=== PATIENT | male | born 1990 | race Hispanic/Latino ===

== ENCOUNTER 2016-08-11 09:05 | Inpatient (IN) | payer OTHER ==
--- NOTE | 2016-08-11 10:07 | Emergency Department Report ---
Chief Complaint: Altered Mental Status Stated Complaint: SOB/CAN'T TALK - HPI History of Present Illness: 26-year-old -[place] male with a past medical history of HIV and drug abuse comes in today for being nonverbal. Mother reports the patient has been on a binge and he comes back home. To her to be dehydrated and is non-verbal. Patient denies any pain. - Exam Vital Signs: Vital Signs 08/11/16 09:47 Temperature 98.4 F Pulse Rate 94 H Respiratory 18 Rate Blood Pressure 132/95 O2 Sat by Pulse 100 Oximetry Physical Exam: GENERAL: Alert and oriented x3, no apparent distress, Normal Gait, atraumatic. HEAD: Head is normocephalic and a-traumatic. EYES: Extra ocular muscles are intact. Pupils are equal, round, and reactive to light and accommodation. MOUTH:Mouth is not well hydrated and with white thick exudate on tongue. Tonsils nonerythematous or swollen, Uvula midline, Tongue not elevated.. Posterior pharynx clear, no exudate or lesions. Patent airways. NECK: Supple. Non edematous, No lymphadenopathy or thyromegaly. LUNGS: Symetrical with respiration, No wheezing, no rales or crackles, CTAB. HEART: S1, S2 present, regular rate and rhythm without murmur, no rubs, no gallops. ABDOMEN: No organomegaly was noted,Positive bowel sounds, soft, and non- distended. . Nontender to palpation on all Quadrants, NO CVA tenderness. NEUROLOGIC: No focal Deficit, Cranial nerves II through XII are grossly intact. No loss of sensation, No facial droop, non verbal PSYCHIATRIC: Mood is congruent with affect, SKIN: Warm and dry, No lesions, No ulceration or induration present MSE screening note: Focused history and physical exam performed. Due to findings the following was ordered: Patient's been notified weighted by this provider and MSE. Patient will be evaluated at Main ER. Altered mental status protocol ordered. ED Disposition for MSE Condition: Stable
[2016-08-11 10:57] LABS: Hematocrit 46.8 % (35.5-45.6); Hemoglobin 16.2 gm/dl (11.8-15.2); Mean Corpuscular HGB Conc 35 % (32-34); Mean Corpuscular Hemoglobin 33 pg (28-32); Mean Corpuscular Volume 94 fl (84-94); Platelet Count 180 K/mm3 (140-440); Red Blood Count 4.97 M/mm3 (3.65-5.03); Red Cell Distribution Width 12.3 % (13.2-15.2); White Blood Count 8.9 K/mm3 (4.5-11.0)
[2016-08-11 11:11] LABS: INR 0.92 (0.87-1.13)
[2016-08-11 11:12] LABS: Partial Thromboplastin Time 26.8 Sec. (24.2-36.6)
[2016-08-11 11:35] LABS: Albumin 3.5 g/dL (3.9-5); Albumin/Globulin Ratio 0.6 %; BUN/Creatinine Ratio 26.66; Bilirubin,Total 0.8 mg/dL (0.1-1.2); Calcium 9.3 mg/dL (8.4-10.2); Total Protein 9.4 g/dL (6.3-8.2)
[2016-08-11 11:36] LABS: Chloride 82.4 mmol/L (98-107); Potassium 3.5 mmol/L (3.6-5.0)
[2016-08-11 12:19] LABS: Blastocytes % (Manual) 0 %
[2016-08-11 12:20] LABS: Anisocytosis 1+; Basophils % (Manual) 0 % (0.0-1.8)
[2016-08-11 12:22] LABS: Diff Status Complete; Platelet Estimate Consistent w Auto
[2016-08-11] MEDS ORDERED: NACL 0.9% 1000 ML IV ONE (13:26)
--- NOTE | 2016-08-11 14:40 | Cat Scan Report ---
FINAL REPORT PROCEDURE: CT HEAD/BRAIN WO CON TECHNIQUE: Computerized tomography of the head was performed without contrast material. HISTORY: ams elevated ck and REGINA COMPARISON: No prior studies are available for comparison. FINDINGS: Skull and scalp: Normal. Paranasal sinuses: Trace fluid right mastoid. Mucosal thickening left posterior maxillary sinus. Ventricles and subarachnoid spaces: Normal. Cerebrum: No evidence of hemorrhage, acute infarction or mass . Cerebellum and brainstem: No evidence of hemorrhage, acute infarction or mass. Vasculature: Mildly dense intracranial arteries. Comments: Cavum septum pellucidum. IMPRESSION: No definite evidence of acute intracranial pathology. If symptoms and or concern persists recommend MRI.
--- NOTE | 2016-08-11 14:44 | Emergency Department Report ---
HPI - General Chief Complaint: Altered Mental Status Time Seen by Provider: 08/11/16 14:11 - HPI HPI: Chief complaint: Altered mental status after a methamphetamine binge HPI: Patient was brought in by his mother for not acting well after methamphetamine binge. Last Friday patient disappeared until Friday. During that time he was binging on amphetamines. After returning home patient seemed to be normal on Friday but on became confused and then had nausea and vomiting. On Friday patient is not feeling well and was not eating or drinking. Patient seems confused initially but is gradually becoming more himself. Patient is currently alert and oriented 3 and feels fatigued but is no longer having nausea vomiting. Patient is not having any fever or diarrhea or cough or cold. Mode of arrival: private car Source: Patient Began: Approximately one week Duration: See above Context: See above. Patient was admitted here in May and had a low CD4 count and was treated for cryptosporidium which he has been treated for and he is no longer having diarrhea. Patient states he has been taking his medications since May and has been gaining some weight. Patient was being followed by Dr. Valenzuela who left the local practice and is now being followed by Dr. hilliard. Quality: Pain-free Severity: 0 out of 10 Improved with: Nothing Worsened with: Nothing Associated signs and symptoms: See above ED Past Medical Hx - Past Medical History Additional medical history: AIDS - Social History Smoking Status: Unknown if ever smoked Substance Use Type: Methamphetamines - Medications Home Medications: Home Medications Medication Instructions Recorded Confirmed Last Taken Type Elvitegr/Cobicist/Emtric/Tenof 1 each PO DAILY 05/05/16 05/05/16 Unknown History [Stribild Tablet] Nitazoxanide [Alinia] 500 mg PO Q12H 05/05/16 05/05/16 Unknown History Azithromycin [Zithromax TAB] 600 mg PO QDAY #4 tablet 05/10/16 Unknown Rx Fluconazole [Diflucan TAB] 100 mg PO QDAY #7 tablet 05/10/16 Unknown Rx Potassium Chloride 20 meq PO DAILY #7 tablet.er 05/10/16 Unknown Rx Sulfamethoxazole/Trimethoprim 1 each PO DAILY #30 tablet 05/10/16 Unknown Rx [Bactrim DS TAB] ED Review of Systems ROS: Stated complaint: SOB/CAN'T TALK Other details as noted in HPI ROS Constitutional: No fever ENT: No uri symptoms Cardiovascular: No chest pain Respiratory: No sob or cough GI: No nausea vomiting or diarrhea : No dysuria frequency or urgency, Skin: No rash Neuro: No focal weakness or numbness Psych: No depression Dequan/lymph: No edema Physical Exam - Physical Exam Vital Signs: Vital Signs 08/11/16 09:47 Temperature 98.4 F Pulse Rate 94 H Respiratory 18 Rate Blood Pressure 132/95 O2 Sat by Pulse 100 Oximetry Physical Exam: GENERAL: The patient is thin -Citizen Of [place] male in no acute distress. HEENT: Normocephalic. Atraumatic. Extraocular motions are intact. Patient has moist mucous membranes. NECK: Supple. No meningitic signs are noted. There is no adenopathy noted. CHEST/LUNGS: Clear to auscultation. There is no respiratory distress noted. HEART/CARDIOVASCULAR: Regular. There is no tachycardia. There is no gallop rub or murmur. ABDOMEN: Abdomen is soft, nontender. Patient has normal bowel sounds. There is no abdominal distention. SKIN: There is no rash. There is no edema. There is no diaphoresis. NEURO: The patient is awake, alert, and oriented 3. The patient is cooperative. The patient has no focal neurologic deficits. The patient has normal speech. MUSCULOSKELETAL: There is no tenderness or deformity. There is no limitation range of motion. There is no evidence of acute injury. ED Course Vital Signs 08/11/16 09:47 Temperature 98.4 F Pulse Rate 94 H Respiratory 18 Rate Blood Pressure 132/95 O2 Sat by Pulse 100 Oximetry - Reevaluation(s) Reevaluation #1: 08/11/16 14:50 Patient started on 2 L of normal saline for his acute renal failure and will be admitted to the hospitalist. ED Medical Decision Making - Lab Data Result diagrams: 08/11/16 10:37 08/11/16 10:37 Laboratory Tests 08/11/16 08/11/16 08/11/16 10:37 10:37 10:37 PT 12.3 INR 0.92 APTT 26.8 AST 92 H Total Creatine Kinase 7771 H Total Protein 9.4 H Albumin 3.5 L TSH 4.520 H Salicylates Acetaminophen Plasma/Serum Alcohol 08/11/16 08/11/16 08/11/16 10:37 10:37 10:37 PT INR APTT AST Total Creatine Kinase Total Protein Albumin TSH Salicylates < 0.3 L Acetaminophen < 15.0 Plasma/Serum Alcohol < 0.01 - Radiology Data Radiology results: report reviewed (CT head shows no acute process.) Critical care attestation.: If time is entered above; I have spent that time in minutes in the direct care of this critically ill patient, excluding procedure time. ED Disposition Clinical Impression: Acute renal failure, Rhabdomyolysis Disposition: OP ADMITTED IP TO THIS HOSP Is pt being admited?: Yes Does the pt Need Aspirin: No Condition: Fair Referrals: PRIMARY CARE, [Primary Care Provider] - 3-5 Days Time of Disposition: 14:50 (admit to the hospitalist)
--- NOTE | 2016-08-11 15:46 | Admit Criteria Form ---
Admission Criteria Documentation: MUSCULOSKELETAL DISEASE GRG Clinical Indications for Admission to Inpatient Care (Place 'X' for any and all applicable criteria): Hospital admission is needed for appropriate care of the patient because of ANY ONE of the following: [ ]I. Fracture, dislocation, or other musculoskeletal injury requiring inpatient care(medical) as indicated by ANY ONE of the following(4)(5)(6)(7) [ ]a) Vertebral fracture requiring observation for instability or neurologic compromise (8) [ ]b) Compartment syndrome (proven or cannot be ruled out during observation level of care) (9) [ ]c) Limb-threatening injury [ ]d) Major injury requiring inpatient stabilization such as traction initiation or external fixation before internal fixation or closure of complex or open fracture [ ]e) Major injury requiring inpatient treatment after emergency or observation level care (as appropriate) [ ]f) Severe pain requiring acute inpatient management [ ]II. Newly diagnosed or suspected bone, joint, or orthopedic device infection (e.g., osteomyelitis, septic arthritis) needing ANY ONE of the following(1)(2)(3) [ ]a) IV antibiotics that cannot be initiated in other than inpatient setting (e.g., patient too unstable or home infusion not available) [ ]b) Device removal or replacement [ ]c) Bone or soft tissue debridement [ ]d) Joint drainage (drain placement or repetitive aspirations) [ ]III. Severe rheumatologic disease (e.g., systemic lupus erythematosus, rheumatoid arthritis) with complications or comorbidities (Also use Optimal Recovery Care Criteria or General Recovery Criteria as appropriate on the basis of predominant condition), including ANY ONE of the following(10 )(11)(12)(13) [ ]a) Severe infection (e.g., JIGMAN infection, sepsis) (14) [ ]b) Respiratory complications, including ANY ONE of the following: [ ]i) Pleural effusion with respiratory compromise [ ]ii) Pulmonary hypertension with congestive failure [ ]iii) Respiratory failure [ ]iv) Pulmonary hemorrhage (15) [ ]c) Hematologic disease, including ANY ONE of the following: [ ]i) Coagulopathy with bleeding [ ]ii) Thrombosis with hypercoagulable state [ ]iii) Thrombotic thrombocytopenic purpura [ ]d) Cerebritis with seizures, psychosis, or other severe abnormalities [ ]e) Vertebral destruction with monitoring needed for cervical myelopathy& possible respiratory compromise [ ]f) Exacerbation that requires inpatient treatment (e.g., intravenous immunosuppression) (16) [ ]g) Acute renal failure [ ]IV. Severe vasculitis with complications or comorbidities (Also use Optimal Recovery Care Criteria or General Recovery Criteria as appropriate on the basis of predominant condition), including ANY ONE of the following(11)(12)(17)(18)(19)(20) [ ]a) JIGMAN vasculitis with seizures, psychosis, or other severe abnormalities (22) [ ]b) Renal failure (16) [ ]c) Pulmonary hemorrhage (15) [ ]d) Cerebral infarction [ ]e) Gastrointestinal ischemia [ ]f) Gangrene or threatened amputation [ ]g) Exacerbation that requires inpatient treatment (e.g., intravenous immunosuppression) (19)(21) [ ]V. Severe myopathy as indicated by ANY ONE of the following (28)(29) [ ]a) New onset of airway compromise or inability to swallow [ ]b) Respiratory deterioration with observation needed for impending respiratory failure [ ]c) Exacerbation that requires inpatient treatment (e.g., intravenous immunosuppression) [ ]. Severe gout (crystal arthropathy) as indicated by ANY ONE of the following (23)(24) [ ]a) Severe pain requiring acute inpatient management [ ]b) Exacerbation that requires inpatient treatment (e.g., intravenous treatment) [X ]VII.Rhabdomyolysis and ANY ONE of the following (25)(26)(27) [ X]a) Acute renal failure [ ]b) Need for intravenous hydration after emergency or observation level care (as appropriate) [ ]c) Inability to maintain oral hydration [ ]d) Change in mental status [ ]e) Electrolyte abnormality that remains after emergency or observation level care (as appropriate) [ ]VIII Post amputation complication, as indicated by ANY ONE of the following [ ]a) Infection [ ]b) Dehiscence [ ]c) Myodesis failure [ ]IX. Severe pain requiring acute inpatient management as indicated by ALL of the following (30)(31)(32) [ ]a) Continuous or frequent (e.g., every 2 to 4 hrs) parenteral analgesics required [A] [ ]b) Rapid improvement expected from treatment or acute intervention ( e.g., surgery, anesthesia procedure[B] [ ]X. Musculoskeletal Disease and ALL of the following: [ ]a) Symptom or finding for which emergency and observation care have failed or are not considered appropriate (Use General Criteria: Observation Care as appropriate) [ ]b) Presence of ANY ONE of the following [ ]i) A General Admission Criteria [ ]ii) A Pediatric General Admission Criteria The original [facility] content created by [facility] has been revised. The portions of the content which have been revised are identified through the use of italic text or in bold, and [facility] has neither reviewed nor approved the modified material. All other unmodified content is copyright [facility]. Please see references footnoted in the original [facility] edition 2016 Admission Criteria Met: Yes
--- NOTE | 2016-08-11 23:57 | Event Note ---
Date: 08/11/16 See H/p in reports AMS-improving Methamphetamine binge Rhabdomyolysis Acute Renal failure Hyponatremia Hypokalemia Hiv/AIDS
[2016-08-12] MEDS ORDERED: HALDOL IM PRN (01:11)
[2016-08-12] MEDS ORDERED: ATIVAN IV PRN ×2 (01:11)
[2016-08-12] MEDS ORDERED: K-DUR PO ONE ×3 (01:40→08:21)
[2016-08-12] MEDS ORDERED: D5NS 1,000 ML IV SCH (02:00)
--- NOTE | 2016-08-12 02:29 | History and Physical Report ---
CHIEF COMPLAINT: 1. Methamphetamine binge. 2. Altered mental status. HISTORY OF PRESENT ILLNESS: A 26-year-old -[place] male with history of HIV and AIDS, brought in by mother for altered mental status. The patient was on methamphetamine binge 1 week ago last Friday, this appeared until Friday. During that time, the patient was apparently binging on methamphetamines. The patient was apparently normal on Friday, which is 08/07/2016, by around 08/08/2016, the patient became confused, and also had nausea and vomiting. On 08/09/2016, the patient was not feeling well and was not eating or drinking. The patient seems confused initially, but has been gradually becoming more himself. The patient is currently better now compared to 3 days ago, but feels fatigued and no longer having nausea and vomiting, and not having any fever or chills. The patient was admitted here in May for low CD4 count and was treated for cryptosporidium, was followed by Dr. Kincaid and Dr. Car. The patient currently under antiretrovirals. PAST MEDICAL HISTORY: Significant for AIDS and HIV. SOCIAL HISTORY: Methamphetamine use. PAST SURGICAL HISTORY: None. FAMILY HISTORY: Hypertension. CURRENT MEDICATIONS: Stribild tablets 1 tablet once a day, 500 mg p.o. q.i.d., Zithromax 600 mg q.i.d., fluconazole 100 mg p.o. daily, potassium chloride 20 mEq daily, Bactrim 1 tablet p.o. daily. REVIEW OF SYSTEMS: CONSTITUTIONAL: Altered sensorium 3 days ago, but now better, back to baseline. There was also vomiting or nausea. HEENT: No sore throat. No postnasal drip. CARDIOVASCULAR AND RESPIRATORY SYSTEM: No shortness of breath, no chest pain, no palpitations. GASTROINTESTINAL: No nausea, vomiting present until two days ago, today is feeling better. GENITOURINARY SYSTEM: No dysuria, no flank pain. MUSCULOSKELETAL SYSTEM: No joint pains. No muscle pains. CENTRAL NERVOUS SYSTEM: No syncope, no seizures. Altered sensorium until two days ago. SKIN: Normal. A 14-point review of systems done and are negative. PHYSICAL EXAMINATION: GENERAL: Young male, cooperative during examination. VITAL SIGNS: Temperature 98.4, pulse is 94, respiratory rate is 18, blood pressure is 132/95, sats are 100%. HEENT: Unremarkable. Tongue dry. NECK: Supple, no lymphadenopathy, no thyromegaly. LUNGS: Clear to auscultation and percussion. Good air entry. CARDIOVASCULAR: S1, S2 heard. No gallop, no murmur, no rub. Apical impulse in left fifth intercostal space and midclavicular line. ABDOMEN: Soft and benign. No hepatosplenomegaly. No guarding and no rigidity. Hernial orifices are normal. EXTREMITIES: Good pedal pulses. No pedal edema. CENTRAL NERVOUS SYSTEM: Alert and oriented x4. NEUROLOGIC: Nonfocal exam. SKIN: Normal. LABORATORY DATA: Significant for H and H of 16.2 and 46.8 high. Platelet count is 180,000. Sodium is 130, potassium is 3.5, BUN and creatinine 64 and 2.4, creatinine kinase is 7771. TSH is 4.52, total protein is 9.4, albumin 3.5, AST is high at 92; toxicology screen is negative. Amphetamine positive. Head CT was normal. ASSESSMENT AND PLAN: 1. Acute renal failure. The patient was started on IV fluids. Follow up BUN and creatinine, Dr. Mccabe, the Nephrology on-call was consulted. 2. Rhabdomyolysis, moderate. IV fluids for the time being. Follow BUN and creatinine. 3. Methamphetamine danger. Patient is on prolonged CIWA protocol. The patient is more alert and oriented x3 days ago. 4. HIV/AIDS, continue antiretrovirals. 5. Hyponatremia, should correct with IV fluids. Her urine electrolytes ordered. 6. Hypokalemia, supplemented. 7. Malnutrition moderate. Dietary consult ordered. 8. Transaminitis, ALT is normal. AST is high. 9. Deep venous thrombosis prophylaxis, Lovenox 40 mg subcutaneous daily. JOB# [id number] VSM/NTS
[2016-08-12 04:42] LABS: Magnesium 2.8 mg/dL (1.7-2.3); Phosphorous 2.8 mg/dL (2.5-4.5)
[2016-08-12] MEDS: VIREAD PO SCH (09:33)
[2016-08-12] MEDS: NON-FORMULARY (Dolutegravir 50 MG) PO SCH (09:34)
[2016-08-12] MEDS ORDERED: PREZCOBIX 800 MG PO SCH (10:00)
[2016-08-12] MEDS: NON-FORMULARY (Darunavir/Cobicistat [Prezcobix 800 Mg-150 Mg Tablet] 1 EACH) PO SCH (10:00)
[2016-08-12] MEDS ORDERED: NON-FORMULARY (Dolutegravir Sodium [Tivicay] 50 MG) PO SCH (10:00)
[2016-08-12] MEDS ORDERED: VIREAD PO SCH (10:00)
--- NOTE | 2016-08-12 11:43 | Consultation ---
History of Present Illness - Reason for Consult Consult date: 08/12/16 acute renal failure Requesting physician: HAYDEE ESPINOSA - History of Present Illness 26-year-old male with a history of AIDS Medications and Allergies Allergies Allergy/AdvReac Type Severity Reaction Status Date / Time No Known Allergies Allergy Unverified 05/05/16 14:17 Home Medications Medication Instructions Recorded Confirmed Last Taken Type Darunavir/Cobicistat [Prezcobix 1 each PO DAILY 08/11/16 08/11/16 Unknown History 800 mg-150 mg Tablet] Dolutegravir Sodium [Tivicay] 50 mg PO DAILY 08/11/16 08/11/16 Unknown History Tenofovir [Viread] 300 mg PO QDAY 08/11/16 08/11/16 Unknown History Active Meds: Active Medications Haloperidol Lactate (Haldol) 5 mg IM Q1H PRN PRN Reason: Unrespon. to mult. doses BZD's Dextrose/Sodium Chloride (D5ns) 1,000 mls @ 125 mls/hr IV DIRECT [facility] Last Admin: 08/12/16 03:53 Dose: 125 mls/hr Lorazepam (Ativan) 2 mg IV Q1H PRN PRN Reason: CIWA-Ar 8-15 Lorazepam (Ativan) 4 mg IV Q1H PRN PRN Reason: CIWA-Ar 16-25 Miscellaneous Medication (Dolutegravir) 50 mg PO DAILY [facility] Last Admin: 08/12/16 09:34 Dose: 50 mg Miscellaneous Medication (Darunavir/Cobicistat [Prezcobix 800 Mg-150 Mg Tablet] ) 1 each PO DAILY [facility] Tenofovir Disoproxil Fumarate (Viread) 300 mg PO QDAY [facility] Last Admin: 08/12/16 09:33 Dose: 300 mg Exam - Vital Signs Vital signs: Vital Signs Temp Pulse Resp BP Pulse Ox 98.4 F 94 H 18 132/95 100 08/11/16 09:47 08/11/16 09:47 08/11/16 09:47 08/11/16 09:47 08/11/16 09:47 Results - Lab Results 08/11/16 10:37 08/12/16 04:06 Most recent lab results Calcium 9.3 mg/dL (8.4-10.2) 08/11/16 10:37 Phosphorus 2.8 mg/dL (2.5-4.5) 08/12/16 04:06 Magnesium 2.8 mg/dL (1.7-2.3) H 08/12/16 04:06 Assessment and Plan - Patient Problems (1) Hyponatremia Current Visit: Yes Status: Acute (2) Acute renal failure Current Visit: Yes Status: Acute Qualifiers: Acute renal failure type: A (3) Rhabdomyolysis Current Visit: Yes Status: Acute Qualifiers: Rhabdomyolysis type: R Encounter type: E (4) AIDS Current Visit: No Status: Acute (5) Hypokalemia Current Visit: No Status: Acute
--- NOTE | 2016-08-12 12:58 | Progress Note ---
Assessment and Plan Assessment and plan: Patient is a 26-year-old -[place] male with history of HIV/AIDS, Admitted with altered mental status after a week of methamphetamine binge and I' ll return home had multiple episodes of nausea with vomiting. History shows that he has had treatment for Cryptosporidium in May 2016 with noted low CD4 count of the time, he reports that he is on the care of and infectious diseases physician at this time.. On admission was noted to have rhabdomyolysis. * Acute none traumatic rhabdomyolysis * Hyponatremia * Hypokalemia * Substance abuse-amphetamine * Acute kidney injury-likely secondary to visible today nephropathy present on admission * AIDS Plan * Continue aggressive fluid resuscitation * Monitor creatinine kinase * Nephrology input noted and will continue to monitor renal function * Continue HAART therapy * Counselling provided to the patient on need to avoid substance abuse. Patient verbalized understanding * DVT/GI PROPHY History Interval history: Altered mental status Patient seen and examined this morning in no acute distress Denies any chest pain, nausea, vomiting, diarrhea No fever noted blood pressure controlled No adverse events reported to me by nursing staff Hospitalist Physical - Physical exam Narrative exam: VITAL SIGNS: Reviewed. GENERAL: The patient appeared well nourished and normally developed. Vital signs as documented. HEAD: No signs of head trauma. EYES: Pupils are equal. Extraocular motions intact. EARS: Hearing grossly intact. MOUTH: Oropharynx is normal. NECK: No adenopathy, no JVD. CHEST: Chest with clear breath sounds bilaterally. No wheezes, rales, or rhonchi. CARDIAC: Regular rate and rhythm. S1 and S2, without murmurs, gallops, or rubs. VASCULAR: No Edema. Peripheral pulses normal and equal in all extremities. ABDOMEN: Soft, without detectable tenderness. No sign of distention. No rebound or guarding, and no masses palpated. Bowel Sounds normal. MUSCULOSKELETAL: Good range of motion of all major joints. Extremities without clubbing, cyanosis or edema. NEUROLOGIC EXAM: Alert and oriented x 3. Still lethargic. No focal sensory or strength deficits. Speech still slow. Follows commands. PSYCHIATRIC: Mood normal. SKIN: No rash or lesions. - Constitutional Vitals: Temp Pulse Resp BP Pulse Ox 98.5 F 86 16 133/72 100 08/12/16 08:25 08/12/16 08:25 08/12/16 08:25 08/12/16 08:25 08/12/16 08:25 Results - Labs CBC & Chem 7: 08/11/16 10:37 08/12/16 04:06 Labs: Laboratory Last Values WBC 8.9 K/mm3 (4.5-11.0) 08/11/16 10:37 RBC 4.97 M/mm3 (3.65-5.03) 08/11/16 10:37 Hgb 16.2 gm/dl (11.8-15.2) H 08/11/16 10:37 Hct 46.8 % (35.5-45.6) H 08/11/16 10:37 MCV 94 fl (84-94) 08/11/16 10:37 MCH 33 pg (28-32) H 08/11/16 10:37 MCHC 35 % (32-34) H 08/11/16 10:37 RDW 12.3 % (13.2-15.2) L 08/11/16 10:37 Plt Count 180 K/mm3 (140-440) 08/11/16 10:37 Jessamine % (Auto) Transmission Operator 08/11/16 10:37 Add Manual Diff Complete 08/11/16 10:37 Total Counted 100 08/11/16 10:37 Seg Neuts % (Manual) 58.0 % (40.0-70.0) 08/11/16 10:37 Band Neutrophils % 0 % 08/11/16 10:37 Lymphocytes % (Manual) 13.0 % (13.4-35.0) L 08/11/16 10:37 Reactive Lymphs % (Man) 0 % 08/11/16 10:37 Monocytes % (Manual) 27.0 % (0.0-7.3) H 08/11/16 10:37 Eosinophils % (Manual) 2.0 % (0.0-4.3) 08/11/16 10:37 Basophils % (Manual) 0 % (0.0-1.8) 08/11/16 10:37 Metamyelocytes % 0 % 08/11/16 10:37 Myelocytes % 0 % 08/11/16 10:37 Promyelocytes % 0 % 08/11/16 10:37 Blast Cells % 0 % 08/11/16 10:37 Nucleated RBC % Not Reportable 08/11/16 10:37 Seg Neutrophils # Man 5.2 K/mm3 (1.8-7.7) 08/11/16 10:37 Band Neutrophils # 0.0 K/mm3 08/11/16 10:37 Lymphocytes # (Manual) 1.2 K/mm3 (1.2-5.4) 08/11/16 10:37 Abs React Lymphs (Man) 0.0 K/mm3 08/11/16 10:37 Monocytes # (Manual) 2.4 K/mm3 (0.0-0.8) H 08/11/16 10:37 Eosinophils # (Manual) 0.2 K/mm3 (0.0-0.4) 08/11/16 10:37 Basophils # (Manual) 0.0 K/mm3 (0.0-0.1) 08/11/16 10:37 Metamyelocytes # 0.0 K/mm3 08/11/16 10:37 Myelocytes # 0.0 K/mm3 08/11/16 10:37 Promyelocytes # 0.0 K/mm3 08/11/16 10:37 Blast Cells # 0.0 K/mm3 08/11/16 10:37 WBC Morphology Not Reportable 08/11/16 10:37 Hypersegmented Neuts Not Reportable 08/11/16 10:37 Hyposegmented Neuts Not Reportable 08/11/16 10:37 Hypogranular Neuts Not Reportable 08/11/16 10:37 Smudge Cells Not Reportable 08/11/16 10:37 Toxic Granulation Not Reportable 08/11/16 10:37 Toxic Vacuolation Not Reportable 08/11/16 10:37 Dohle Bodies Not Reportable 08/11/16 10:37 Pelger-Huet Anomaly Not Reportable 08/11/16 10:37 Supa Rods Not Reportable 08/11/16 10:37 Platelet Estimate Consistent w auto 08/11/16 10:37 Clumped Platelets Not Reportable 08/11/16 10:37 Plt Clumps, EDTA Not Reportable 08/11/16 10:37 Large Platelets Not Reportable 08/11/16 10:37 Giant Platelets Not Reportable 08/11/16 10:37 Platelet Satelliting Not Reportable 08/11/16 10:37 Plt Morphology Comment Not Reportable 08/11/16 10:37 RBC Morphology Not Reportable 08/11/16 10:37 Dimorphic RBCs Not Reportable 08/11/16 10:37 Polychromasia Not Reportable 08/11/16 10:37 Hypochromasia Not Reportable 08/11/16 10:37 Poikilocytosis Not Reportable 08/11/16 10:37 Anisocytosis 1+ 08/11/16 10:37 Microcytosis Not Reportable 08/11/16 10:37 Macrocytosis Not Reportable 08/11/16 10:37 Spherocytes Not Reportable 08/11/16 10:37 Pappenheimer Bodies Not Reportable 08/11/16 10:37 Sickle Cells Not Reportable 08/11/16 10:37 Target Cells Not Reportable 08/11/16 10:37 Tear Drop Cells Not Reportable 08/11/16 10:37 Ovalocytes Not Reportable 08/11/16 10:37 Helmet Cells Not Reportable 08/11/16 10:37 [place] Bodies Not Reportable 08/11/16 10:37 [place] Rings Not Reportable 08/11/16 10:37 Maria Fernanda Cells Not Reportable 08/11/16 10:37 Bite Cells Not Reportable 08/11/16 10:37 Crenated Cell Not Reportable 08/11/16 10:37 Elliptocytes Not Reportable 08/11/16 10:37 Acanthocytes (Spur) Not Reportable 08/11/16 10:37 Rouleaux Not Reportable 08/11/16 10:37 Hemoglobin C Crystals Not Reportable 08/11/16 10:37 Schistocytes Not Reportable 08/11/16 10:37 Malaria parasites Not Reportable 08/11/16 10:37 Carlo Bodies Not Reportable 08/11/16 10:37 Hem Pathologist Commnt No 08/11/16 10:37 PT 12.3 Sec. (12.2-14.9) 08/11/16 10:37 INR 0.92 (0.87-1.13) 08/11/16 10:37 APTT 26.8 Sec. (24.2-36.6) 08/11/16 10:37 Sodium 134 mmol/L (137-145) L 08/12/16 04:06 Potassium 3.0 mmol/L (3.6-5.0) L 08/12/16 04:06 Chloride 92.0 mmol/L (98-107) L 08/12/16 04:06 Carbon Dioxide 31 mmol/L (22-30) H 08/12/16 04:06 Anion Gap 14 mmol/L 08/12/16 04:06 BUN 64 mg/dL (9-20) H 08/11/16 10:37 Creatinine 2.4 mg/dL (0.8-1.5) H 08/11/16 10:37 Estimated GFR 33 ml/min 08/11/16 10:37 BUN/Creatinine Ratio 26.66 % 08/11/16 10:37 Glucose 121 mg/dL (75-100) H 08/11/16 10:37 Lactic Acid 1.5 mmol/L (0.7-2.0) 08/11/16 10:37 Calcium 9.3 mg/dL (8.4-10.2) 08/11/16 10:37 Phosphorus 2.8 mg/dL (2.5-4.5) 08/12/16 04:06 Magnesium 2.8 mg/dL (1.7-2.3) H 08/12/16 04:06 Total Bilirubin 0.8 mg/dL (0.1-1.2) 08/11/16 10:37 AST 92 units/L (5-40) H 08/11/16 10:37 ALT 24 units/L (7-56) 08/11/16 10:37 Alkaline Phosphatase 52 units/L (35-129) 08/11/16 10:37 Ammonia 35.0 umol/L (25-60) 08/11/16 10:37 Total Creatine Kinase 8965 units/L (55-170) H 08/12/16 08:26 Troponin T 0.010 ng/mL (0.00-0.029) 08/11/16 12:59 Total Protein 9.4 g/dL (6.3-8.2) H 08/11/16 10:37 Albumin 3.5 g/dL (3.9-5) L 08/11/16 10:37 Albumin/Globulin Ratio 0.6 % 08/11/16 10:37 TSH 4.520 mlU/mL (0.270-4.200) H 08/11/16 10:37 Free T4 1.41 ng/dL (0.76-1.46) 08/12/16 08:26 Salicylates < 0.3 mg/dL (2.8-20.0) L 08/11/16 10:37 Acetaminophen < 15.0 ug/mL (10.0-30.0) 08/11/16 10:37 Plasma/Serum Alcohol < 0.01 gm% (0-0.07) 08/11/16 10:37 - Imaging and Cardiology CT Scan - head: image reviewed (no acute pathology)
[2016-08-12] MEDS: NACL 0.9% 1000 ML 1,000 ML IV SCH (23:25)
[2016-08-13] MEDS: NACL 0.9% 1000 ML 1,000 ML IV SCH ×3 (04:12→22:55)
[2016-08-13 06:23] LABS: Hematocrit 36.4 % (35.5-45.6); Hemoglobin 12.5 gm/dl (11.8-15.2); Mean Corpuscular HGB Conc 34 % (32-34); Mean Corpuscular Hemoglobin 32 pg (28-32); Mean Corpuscular Volume 94 fl (84-94); Platelet Count 205 K/mm3 (140-440); Red Blood Count 3.89 M/mm3 (3.65-5.03); Red Cell Distribution Width 12.2 % (13.2-15.2); White Blood Count 8.2 K/mm3 (4.5-11.0)
[2016-08-13 06:26] LABS: Anion Gap 15 mmol/L; BUN/Creatinine Ratio 12.14; Blood Urea Nitrogen 17 mg/dL (9-20); Carbon Dioxide 25 mmol/L (22-30); Chloride 101.5 mmol/L (98-107); Glucose 104 mg/dL (75-100); Potassium 3.1 mmol/L (3.6-5.0); Sodium 138 mmol/L (137-145)
[2016-08-13] MEDS ORDERED: LOPRESSOR IV ONE (08:34)
[2016-08-13] MEDS: NON-FORMULARY (Darunavir/Cobicistat [Prezcobix 800 Mg-150 Mg Tablet] 1 EACH) PO SCH (09:41)
[2016-08-13] MEDS: K-DUR PO SCH ×2 (09:42→11:47)
[2016-08-13] MEDS: VIREAD PO SCH (09:42)
[2016-08-13] MEDS: NON-FORMULARY (Dolutegravir 50 MG) PO SCH (09:42)
--- NOTE | 2016-08-13 13:31 | Progress Note ---
Assessment and Plan Assessment and plan: Patient is a 26-year-old -[place] male with history of HIV/AIDS, Admitted with altered mental status after a week of methamphetamine binge and I' ll return home had multiple episodes of nausea with vomiting. History shows that he has had treatment for Cryptosporidium in May 2016 with noted low CD4 count of the time, he reports that he is on the care of and infectious diseases physician at this time.. On admission was noted to have rhabdomyolysis. * Acute none traumatic rhabdomyolysis * Hyponatremia * Hypokalemia * Substance abuse-amphetamine * Acute kidney injury-likely secondary to visible today nephropathy present on admission * AIDS Plan * Renal function has improved CPK still elevated will continue fluids recheck CPK later today. If improved will discharge patient's otherwise will await a.m. reports. * Monitor creatinine kinase * Nephrology input noted * Continue HAART therapy * Counselling provided to the patient on need to avoid substance abuse. Patient verbalized understanding * DVT/GI PROPHY History Interval history: Altered mental status Patient seen and examined this morning in no acute distress. Denies any urinary abnormality Denies any chest pain, nausea, vomiting, diarrhea No fever noted blood pressure controlled No adverse events reported to me by nursing staff Hospitalist Physical - Physical exam Narrative exam: VITAL SIGNS: Reviewed. GENERAL: The patient appeared well nourished and normally developed. Vital signs as documented. HEAD: No signs of head trauma. EYES: Pupils are equal. Extraocular motions intact. EARS: Hearing grossly intact. MOUTH: Oropharynx is normal. NECK: No adenopathy, no JVD. CHEST: Chest with clear breath sounds bilaterally. No wheezes, rales, or rhonchi. CARDIAC: Regular rate and rhythm. S1 and S2, without murmurs, gallops, or rubs. VASCULAR: No Edema. Peripheral pulses normal and equal in all extremities. ABDOMEN: Soft, without detectable tenderness. No sign of distention. No rebound or guarding, and no masses palpated. Bowel Sounds normal. MUSCULOSKELETAL: Good range of motion of all major joints. Extremities without clubbing, cyanosis or edema. NEUROLOGIC EXAM: Alert and oriented x 3. Still lethargic. No focal sensory or strength deficits. Speech improved. Follows commands. PSYCHIATRIC: Mood normal. SKIN: No rash or lesions. - Constitutional Vitals: Temp Pulse Resp BP Pulse Ox 98.4 F 78 16 126/70 98 08/13/16 08:00 08/13/16 08:00 08/13/16 08:00 08/13/16 08:00 08/13/16 08:00 Results - Labs CBC & Chem 7: 08/13/16 05:44 08/13/16 05:44 Labs: Laboratory Last Values WBC 8.2 K/mm3 (4.5-11.0) 08/13/16 05:44 RBC 3.89 M/mm3 (3.65-5.03) 08/13/16 05:44 Hgb 12.5 gm/dl (11.8-15.2) D 08/13/16 05:44 Hct 36.4 % (35.5-45.6) D 08/13/16 05:44 MCV 94 fl (84-94) 08/13/16 05:44 MCH 32 pg (28-32) 08/13/16 05:44 MCHC 34 % (32-34) 08/13/16 05:44 RDW 12.2 % (13.2-15.2) L 08/13/16 05:44 Plt Count 205 K/mm3 (140-440) 08/13/16 05:44 Davidson % (Auto) Aprn 08/11/16 10:37 Add Manual Diff Complete 08/11/16 10:37 Total Counted 100 08/11/16 10:37 Seg Neuts % (Manual) 58.0 % (40.0-70.0) 08/11/16 10:37 Band Neutrophils % 0 % 08/11/16 10:37 Lymphocytes % (Manual) 13.0 % (13.4-35.0) L 08/11/16 10:37 Reactive Lymphs % (Man) 0 % 08/11/16 10:37 Monocytes % (Manual) 27.0 % (0.0-7.3) H 08/11/16 10:37 Eosinophils % (Manual) 2.0 % (0.0-4.3) 08/11/16 10:37 Basophils % (Manual) 0 % (0.0-1.8) 08/11/16 10:37 Metamyelocytes % 0 % 08/11/16 10:37 Myelocytes % 0 % 08/11/16 10:37 Promyelocytes % 0 % 08/11/16 10:37 Blast Cells % 0 % 08/11/16 10:37 Nucleated RBC % Not Reportable 08/11/16 10:37 Seg Neutrophils # Man 5.2 K/mm3 (1.8-7.7) 08/11/16 10:37 Band Neutrophils # 0.0 K/mm3 08/11/16 10:37 Lymphocytes # (Manual) 1.2 K/mm3 (1.2-5.4) 08/11/16 10:37 Abs React Lymphs (Man) 0.0 K/mm3 08/11/16 10:37 Monocytes # (Manual) 2.4 K/mm3 (0.0-0.8) H 08/11/16 10:37 Eosinophils # (Manual) 0.2 K/mm3 (0.0-0.4) 08/11/16 10:37 Basophils # (Manual) 0.0 K/mm3 (0.0-0.1) 08/11/16 10:37 Metamyelocytes # 0.0 K/mm3 08/11/16 10:37 Myelocytes # 0.0 K/mm3 08/11/16 10:37 Promyelocytes # 0.0 K/mm3 08/11/16 10:37 Blast Cells # 0.0 K/mm3 08/11/16 10:37 WBC Morphology Not Reportable 08/11/16 10:37 Hypersegmented Neuts Not Reportable 08/11/16 10:37 Hyposegmented Neuts Not Reportable 08/11/16 10:37 Hypogranular Neuts Not Reportable 08/11/16 10:37 Smudge Cells Not Reportable 08/11/16 10:37 Toxic Granulation Not Reportable 08/11/16 10:37 Toxic Vacuolation Not Reportable 08/11/16 10:37 Dohle Bodies Not Reportable 08/11/16 10:37 Pelger-Huet Anomaly Not Reportable 08/11/16 10:37 Supa Rods Not Reportable 08/11/16 10:37 Platelet Estimate Consistent w auto 08/11/16 10:37 Clumped Platelets Not Reportable 08/11/16 10:37 Plt Clumps, EDTA Not Reportable 08/11/16 10:37 Large Platelets Not Reportable 08/11/16 10:37 Giant Platelets Not Reportable 08/11/16 10:37 Platelet Satelliting Not Reportable 08/11/16 10:37 Plt Morphology Comment Not Reportable 08/11/16 10:37 RBC Morphology Not Reportable 08/11/16 10:37 Dimorphic RBCs Not Reportable 08/11/16 10:37 Polychromasia Not Reportable 08/11/16 10:37 Hypochromasia Not Reportable 08/11/16 10:37 Poikilocytosis Not Reportable 08/11/16 10:37 Anisocytosis 1+ 08/11/16 10:37 Microcytosis Not Reportable 08/11/16 10:37 Macrocytosis Not Reportable 08/11/16 10:37 Spherocytes Not Reportable 08/11/16 10:37 Pappenheimer Bodies Not Reportable 08/11/16 10:37 Sickle Cells Not Reportable 08/11/16 10:37 Target Cells Not Reportable 08/11/16 10:37 Tear Drop Cells Not Reportable 08/11/16 10:37 Ovalocytes Not Reportable 08/11/16 10:37 Helmet Cells Not Reportable 08/11/16 10:37 Thompson-[place] Bodies Not Reportable 08/11/16 10:37 [place] Rings Not Reportable 08/11/16 10:37 Maria Fernanda Cells Not Reportable 08/11/16 10:37 Bite Cells Not Reportable 08/11/16 10:37 Crenated Cell Not Reportable 08/11/16 10:37 Elliptocytes Not Reportable 08/11/16 10:37 Acanthocytes (Spur) Not Reportable 08/11/16 10:37 Rouleaux Not Reportable 08/11/16 10:37 Hemoglobin C Crystals Not Reportable 08/11/16 10:37 Schistocytes Not Reportable 08/11/16 10:37 Malaria parasites Not Reportable 08/11/16 10:37 Carlo Bodies Not Reportable 08/11/16 10:37 Hem Pathologist Commnt No 08/11/16 10:37 PT 12.3 Sec. (12.2-14.9) 08/11/16 10:37 INR 0.92 (0.87-1.13) 08/11/16 10:37 APTT 26.8 Sec. (24.2-36.6) 08/11/16 10:37 Sodium 138 mmol/L (137-145) 08/13/16 05:44 Potassium 3.1 mmol/L (3.6-5.0) L 08/13/16 05:44 Chloride 101.5 mmol/L (98-107) 08/13/16 05:44 Carbon Dioxide 25 mmol/L (22-30) 08/13/16 05:44 Anion Gap 15 mmol/L 08/13/16 05:44 BUN 17 mg/dL (9-20) 08/13/16 05:44 Creatinine 1.4 mg/dL (0.8-1.5) 08/13/16 05:44 Estimated GFR > 60 ml/min 08/13/16 05:44 BUN/Creatinine Ratio 12.14 % 08/13/16 05:44 Glucose 104 mg/dL (75-100) H 08/13/16 05:44 Lactic Acid 1.5 mmol/L (0.7-2.0) 08/11/16 10:37 Calcium 8.0 mg/dL (8.4-10.2) L 08/13/16 05:44 Phosphorus 2.8 mg/dL (2.5-4.5) 08/12/16 04:06 Magnesium 2.8 mg/dL (1.7-2.3) H 08/12/16 04:06 Total Bilirubin 0.8 mg/dL (0.1-1.2) 08/11/16 10:37 AST 92 units/L (5-40) H 08/11/16 10:37 ALT 24 units/L (7-56) 08/11/16 10:37 Alkaline Phosphatase 52 units/L (35-129) 08/11/16 10:37 Ammonia 35.0 umol/L (25-60) 08/11/16 10:37 Total Creatine Kinase 8551 units/L (55-170) H 08/13/16 05:44 Troponin T 0.010 ng/mL (0.00-0.029) 08/11/16 12:59 Total Protein 9.4 g/dL (6.3-8.2) H 08/11/16 10:37 Albumin 3.5 g/dL (3.9-5) L 08/11/16 10:37 Albumin/Globulin Ratio 0.6 % 08/11/16 10:37 TSH 4.520 mlU/mL (0.270-4.200) H 08/11/16 10:37 Free T4 1.41 ng/dL (0.76-1.46) 08/12/16 08:26 Salicylates < 0.3 mg/dL (2.8-20.0) L 08/11/16 10:37 Acetaminophen < 15.0 ug/mL (10.0-30.0) 08/11/16 10:37 Plasma/Serum Alcohol < 0.01 gm% (0-0.07) 08/11/16 10:37
[2016-08-13] MEDS ORDERED: POTASSIUM CHLORIDE FEEDTUBE ONE (15:35)
--- NOTE | 2016-08-13 16:50 | Progress Note ---
Assessment and Plan (1) Hyponatremia Current Visit: Yes Status: Acute improved with IVF, continue to monitor (2) Acute renal failure Current Visit: Yes Status: Acute Qualifiers: Acute renal failure type: A Improving, Cr 1.4 today, continue with IVF Monitor renal fxn and electrolytes Avoid nephrotoxins (3) Rhabdomyolysis Current Visit: Yes Status: Acute Qualifiers: Rhabdomyolysis type: R Encounter type: E CK increased to 10,395, continue with IVF at 150 ml/hr, recheck labs tomorrow (4) AIDS Current Visit: No Status: Acute deffered to ID (5) Hypokalemia Current Visit: No Status: Acute Marginally improved, replete K Subjective Date of service: 08/13/16 Interval history: Pt seen lying in bed, NAD reports nausea this am after breakfast Objective - Vital Signs Vital signs: Vital Signs - 12hr 08/13/16 08:00 Temperature 98.4 F Pulse Rate [ 78 Right Radial] Respiratory 16 Rate Blood Pressure 126/70 [Right Arm] O2 Sat by Pulse 98 Oximetry - General Appearance General appearance: well-developed, appears stated age EENT: PERRL, mucous membranes moist, hearing intact Neck: no JVD, no carotid bruit, supple Respiratory: Present: Clear to Ascultation, Normal Exam Cardiology: regular, normal heart rate, S1S2, no murmurs Gastrointestinal: normal, normoactive bowel sounds Integumentary: no rash, warm and dry Neurologic: alert and oriented x3 Musculoskeletal: other (moves all extremitiex) Psychiatric: cooperative - Lab 08/13/16 05:44 08/13/16 05:44 Most recent lab results Calcium 8.0 mg/dL (8.4-10.2) L 08/13/16 05:44 Phosphorus 2.8 mg/dL (2.5-4.5) 08/12/16 04:06 Magnesium 2.8 mg/dL (1.7-2.3) H 08/12/16 04:06
--- NOTE | 2016-08-13 19:01 | Event Note ---
Date: 08/13/16 Patient seen and examined. I reviewed above SIDE STITCHING MACHINE OPERATOR notes which I agree with. Assessment and Plan discussed earlier. Continue volume repletion. Follow up CPK
[2016-08-14] MEDS: NACL 0.9% 1000 ML 1,000 ML IV SCH ×3 (03:30→14:01)
--- NOTE | 2016-08-14 08:08 | Discharge Summary ---
Providers - Providers Date of Admission: 08/11/16 14:51 Date of discharge: 08/14/16 Attending physician: NEVIN QIU MD 08/12/16 01:27 Consult to Physician [CONS] Routine Consulting Provider: EJ SMYTH Reason For Exam: Acute renal failure Place consult to:: renal Notified:: office Phone number called:: [phone] Was contact made?: Yes If yes, spoke with:: eron Time called:: 10:30 Comment:: hal supervisor of operations Primary care physician: YEAST PUSHER Hospitalization Reason for admission: altered mental status Condition: Stable Hospital course: Patient is a 26-year-old -[place]ong[place] male with history of HIV/AIDS, Admitted with altered mental status after a week of methamphetamine binge and returning home had multiple episodes of nausea with vomiting. History shows that he has had treatment for Cryptosporidium in May 2016 with noted low CD4 count of the time, he reports that he is on the care of and infectious diseases physician at this time. On admission was noted to have rhabdomyolysis. Patient was started on aggressive fluid resuscitation with initially worsening of the creatinine kinase which has since begun to improve today. This muscle pain has since resolved. He is clinically stable for discharge we did have extensive counseling on the need to avoid substance abuse patient verbalized understanding. He understands the risk of continuing behavior. He is to follow with pull socket assembler in a few days for repeat renal function study Discharge diagnosis * Acute none traumatic rhabdomyolysis * Acute metabolic encephalopathy * Hyponatremia * Hypokalemia * Substance abuse-amphetamine * Acute kidney injury-likely secondary to visible today nephropathy present on admission * AIDS Disposition: DISCHARGED TO HOME OR SELFCARE Time spent for discharge: 35 mins Core Measure Documentation - Palliative Care Palliative Care/ Comfort Measures: Not Applicable - Core Measures Any of the following diagnoses?: none - VTE Discharge Requirements Deep Vein Thrombosis/Pulmonary Embolism Present on Admission: No Exam - Physical Exam Narrative exam: VITAL SIGNS: Reviewed. GENERAL: The patient appeared well nourished and normally developed. Vital signs as documented. HEAD: No signs of head trauma. EYES: Pupils are equal. Extraocular motions intact. EARS: Hearing grossly intact. MOUTH: Oropharynx is normal. NECK: No adenopathy, no JVD. CHEST: Chest with clear breath sounds bilaterally. No wheezes, rales, or rhonchi. CARDIAC: Regular rate and rhythm. S1 and S2, without murmurs, gallops, or rubs. VASCULAR: No Edema. Peripheral pulses normal and equal in all extremities. ABDOMEN: Soft, without detectable tenderness. No sign of distention. No rebound or guarding, and no masses palpated. Bowel Sounds normal. MUSCULOSKELETAL: Good range of motion of all major joints. Extremities without clubbing, cyanosis or edema. NEUROLOGIC EXAM: Alert and oriented x 3. Still lethargic. No focal sensory or strength deficits. Speech improved. Follows commands. PSYCHIATRIC: Mood normal. SKIN: No rash or lesions. - Constitutional Vitals: Temp Pulse Resp BP Pulse Ox 99.3 F 88 20 131/77 99 08/14/16 00:00 08/14/16 00:00 08/14/16 00:00 08/14/16 00:00 08/13/16 20:00 Plan Activity: advance as tolerated, fall precautions Diet: regular Special Instructions: smoking cessation, other (must avoid substance abuse) Additional Instructions: Patient should follow with Lift Mechanic in 2 days for repeat renal function study Follow up with: MARY INGRAM MD [Primary Care Provider] - 3-5 Days VISH ANGELES MD [Staff Physician] - 7 Days
[2016-08-14] MEDS: VIREAD PO SCH (09:44)
[2016-08-14] MEDS: NON-FORMULARY (Dolutegravir 50 MG) PO SCH (09:45)
[2016-08-14] MEDS: NON-FORMULARY (Darunavir/Cobicistat [Prezcobix 800 Mg-150 Mg Tablet] 1 EACH) PO SCH (09:47)
--- NOTE | 2016-08-14 12:33 | Progress Note ---
Assessment and Plan (1) Hyponatremia Current Visit: Yes Status: Acute improved with IVF, continue to monitor (2) Acute renal failure Current Visit: Yes Status: Acute Qualifiers: Acute renal failure type: A Improving Avoid nephrotoxins OK to d/c from renal standpoint (3) Rhabdomyolysis Current Visit: Yes Status: Acute Qualifiers: Rhabdomyolysis type: R Encounter type: E CPK improved today, OK to d/c from renal standpoint (4) AIDS Current Visit: No Status: Acute deffered to ID (5) Hypokalemia Current Visit: No Status: Acute Marginally improved, replete K Subjective Date of service: 08/14/16 Interval history: Pt seen lying in bed, NAD Objective - Exam Narrative Exam: General appearance: well-developed, appears stated age EENT: PERRL, mucous membranes moist, hearing intact Neck: no JVD, no carotid bruit, supple Respiratory: Present: Clear to Ascultation, Normal Exam Cardiology: regular, normal heart rate, S1S2, no murmurs Gastrointestinal: normal, normoactive bowel sounds Integumentary: no rash, warm and dry Neurologic: alert and oriented x3 Musculoskeletal: other (moves all extremitiex) Psychiatric: cooperative - Vital Signs Vital signs: Vital Signs - 12hr 08/14/16 08/14/16 08:29 12:18 Temperature 99.3 F 100.7 F H Pulse Rate [ 80 99 H Right Radial] Respiratory 16 16 Rate Blood Pressure 127/72 130/67 [Right Arm] O2 Sat by Pulse 99 Oximetry - Lab 08/13/16 05:44 08/13/16 05:44 Most recent lab results Calcium 8.0 mg/dL (8.4-10.2) L 08/13/16 05:44 Phosphorus 2.8 mg/dL (2.5-4.5) 08/12/16 04:06 Magnesium 2.8 mg/dL (1.7-2.3) H 08/12/16 04:06
--- NOTE | 2016-08-14 15:34 | Event Note ---
Date: 08/14/16 Repeat creatinine phosphokinase. If continues to improve, okay to discharge this afternoon. Encourage liberal oral fluid intake on discharge
[2016-08-14 16:08] VITALS: BP 121/67
--- NOTE | 2016-08-19 08:55 | Query- General ---
Kathleen Real Date:_08/19/16 Service Trainer/CDS:Donita Benito/Nelly Phone#:_08/19/16 Exercise your independent professional judgment when responding to this query. Questions asked do not imply a particular answer is desired or expected. We greatly appreciate your clarification on this issue. Clinical Documentation States: Patient is a 26-year-old -[place] male with history of HIV/AIDS, Admitted with altered mental status after a week of methamphetamine binge and I' ll return home had multiple episodes of nausea with vomiting. Clinical Findings Show (include reference to source document): Given the above clinical scenario can you please provide an appropriate diagnosis based on your knowledge of the patient: PHYSICIAN RESPONSE: Methamphetamine Binge with Altered Mental Status: [ ] Poisoning [ x ] Adverse effect of drug [ ] Other [ ] Unable to determine Present on Admission: [x ] Yes (Y) [ ] Clinically undeterminable (W) [ ]No(N) Please also document response in your Progress Notes and/or Discharge Summary and indicate if the condition was present on admission. DELIAD
== END 2016-08-14 18:50 | disposition home or self-care (01) | DRG 974 ==
LOC: ED 09:05 → 3A 14:51
PROVIDERS: ADMIT Internal Medicine; ATTEND Internal Medicine
DX: G93.41 Metabolic encephalopathy (principal); N17.0 Acute kidney failure with tubular necrosis; B20 Human immunodeficiency virus [HIV] disease; M62.82 Rhabdomyolysis; E44.0 Moderate protein-calorie malnutrition; E87.1 Hypo-osmolality and hyponatremia; E87.6 Hypokalemia; Z71.51 Drug abuse counseling and surveillance of drug abuser; Z68.20 Body mass index [BMI] 20.0-20.9, adult; F15.10 Other stimulant abuse, uncomplicated; T43.625A Adverse effect of amphetamines, initial encounter
CPT/HCPCS: 36415; 70450; 80048; 80051; 80053; 80320; 82140; 82550; 83735; 84100; 84439; 84443; 84484; 85007; 85025; 85027; 85610; 85730; 96360; G0480; J7030; J7042

== ENCOUNTER 2018-07-19 19:36 | Inpatient (IN) | payer OTHER, SELFPAY ==
--- NOTE | 2018-07-19 19:49 | Emergency Department Report ---
Addendum entered and electronically signed by ALBERT GALICIA NP 07/19/18 20:01: Blank Doc - Documentation Documentation: Correction: Male Original Note: Blank Doc - Documentation Documentation: This is a 28-year-old female that presents with left testicular pain and swelling. Denies any urinary symptoms. Denies any flank pain. Denies any trauma. This initial assessment diagnostic orders/clinical plan/treatment(s) is/are subject to change based on patient's health status, clinical progression and re- assessment by fellow clinical providers in the ED. Further treatment and workup at subsequent clinical providers discretion. Patient/guardians urged not to elope from ED s their condition may be serious if not clinically assessed and managed. Initial orders include: 1-patient sent to main ED for further evaluation and treatment. 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
[2018-07-19 20:24] LABS: Basophils % (Auto) 0.2 % (0.0-1.8); Hemoglobin 14.8 gm/dl (11.8-15.2); Lymphocytes # (Auto) 1.1 K/mm3 (1.2-5.4); Lymphocytes % (Auto) 14.6 % (13.4-35.0); Mean Corpuscular HGB Conc 35 % (32-34); Mean Corpuscular Volume 90 fl (84-94); Monocytes # (Auto) 0.8 K/mm3 (0.0-0.8); Monocytes % (Auto) 10.3 % (0.0-7.3); Platelet Count 228 K/mm3 (140-440); Red Blood Count 4.68 M/mm3 (3.65-5.03); Red Cell Distribution Width 13.1 % (13.2-15.2)
[2018-07-19 20:52] LABS: BUN/Creatinine Ratio 7; Blood Urea Nitrogen 8 mg/dL (9-20); Calcium 8.7 mg/dL (8.4-10.2); Hemolysis Index 4
[2018-07-19] MEDS ORDERED: ZOFRAN IV ONE (21:14)
[2018-07-19] MEDS ORDERED: NACL 0.9% 1000 ML 1,000 ML IV ONE (21:14)
[2018-07-19] MEDS ORDERED: TYLENOL PO ONE (21:14)
[2018-07-19] MEDS ORDERED: MORPHINE IV ONE (21:14)
[2018-07-19] MEDS ORDERED: ROCEPHIN/NS 1 GM/50 ML 1 GM/50 ML BAG IV ONE (21:23)
--- NOTE | 2018-07-19 21:31 | Emergency Department Report ---
ED Male HPI - General Chief complaint: Urogenital-Male Stated complaint: TESTICULAR PAIN Time Seen by Provider: 07/19/18 19:47 Source: patient Mode of arrival: Ambulatory Limitations: No Limitations - History of Present Illness Initial comments: 28-year-old male presents to ED with left testicular pain 5 days. Patient states he began to experience pain 5 days ago. It then went away for one day, but returned. Patient reports constant pain for the last 3 days. Patient reports onset at rest. Denies any trauma to his groin area. Pt has history of HIV, seen at the [facility]. States most recent CD4 count around 160-180. MD Complaint: testicle pain, testicle swelling -: days(s) (5) Location: left testicle Radiation: other (LLQ abdomen) Severity: severe Quality: aching Consistency: constant Improves with: none Worsens with: palpation fever, nausea/vomiting. denies: discharge, dysuria - Related Data Home Medications Medication Instructions Recorded Confirmed Last Taken Darunavir/Cobicistat (Nf) 1 each PO DAILY 08/11/16 08/11/16 Unknown [Prezcobix 800 mg-150 mg (Nf)] Dolutegravir Sodium [Tivicay] 50 mg PO DAILY 08/11/16 08/11/16 Unknown Tenofovir [Viread] 300 mg PO QDAY 08/11/16 08/11/16 Unknown Allergies Allergy/AdvReac Type Severity Reaction Status Date / Time No Known Allergies Allergy Unverified 05/05/16 14:17 ED Review of Systems ROS: Stated complaint: TESTICULAR PAIN Other details as noted in HPI Comment: All other systems reviewed and negative Constitutional: fever Gastrointestinal: abdominal pain, nausea. denies: vomiting Genitourinary: frequency, testicular pain. denies: dysuria, discharge ED Past Medical Hx - Past Medical History Hx Congestive Heart Failure: No Hx Diabetes: No Hx Asthma: No Hx COPD: No Hx HIV: Yes Additional medical history: AIDS, Acute Renal Failure - Surgical History Past Surgical History?: No - Social History Smoking Status: Never Smoker Substance Use Type: None - Medications Home Medications: Home Medications Medication Instructions Recorded Confirmed Last Taken Type Darunavir/Cobicistat (Nf) 1 each PO DAILY 08/11/16 08/11/16 Unknown History [Prezcobix 800 mg-150 mg (Nf)] Dolutegravir Sodium [Tivicay] 50 mg PO DAILY 08/11/16 08/11/16 Unknown History Tenofovir [Viread] 300 mg PO QDAY 08/11/16 08/11/16 Unknown History ED Physical Exam - General Limitations: No Limitations General appearance: alert, in no apparent distress - Head Head exam: Present: atraumatic, normocephalic - Eye Eye exam: Present: normal appearance - ENT ENT exam: Present: mucous membranes moist - Neck Neck exam: Present: normal inspection - Respiratory Respiratory exam: Present: normal lung sounds bilaterally. Absent: respiratory distress - Cardiovascular Cardiovascular Exam: Present: normal rhythm, tachycardia - GI/Abdominal GI/Abdominal exam: Present: soft. Absent: distended, tenderness - exam: Present: testicular tenderness (on the left), scrotal swelling (mild, left-sided) External exam: Present: normal external exam. Absent: erythema, lesions, ecchymosis - Extremities Exam Extremities exam: Present: normal inspection - Neurological Exam Neurological exam: Present: alert, oriented X3 - Psychiatric Psychiatric exam: Present: normal affect, normal mood - Skin Skin exam: Present: warm, dry, intact, normal color. Absent: rash ED Course Vital Signs 07/19/18 07/19/18 07/19/18 19:48 21:09 22:01 Temperature 99.7 F H 102.4 F H Pulse Rate 113 H 108 H Respiratory 18 19 Rate Blood Pressure 130/80 147/80 Blood Pressure 147/80 [Left] O2 Sat by Pulse 100 98 98 Oximetry 07/19/18 07/19/18 07/20/18 23:01 23:09 00:55 Temperature 100.4 F H 100.8 F H Pulse Rate 120 H Respiratory 18 Rate Blood Pressure 143/84 Blood Pressure 146/80 [Left] O2 Sat by Pulse 98 97 Oximetry ED Medical Decision Making - Lab Data Result diagrams: 07/19/18 19:56 07/19/18 19:56 - Radiology Data Radiology results: report reviewed, image reviewed - Medical Decision Making 28-year-old male with history of HIV presents with left testicular pain. Ultrasound shows patient has acute epididymitis. Patient initially febrile to 102.4 and tachycardic. WBCs within normal range, lactic acid is normal. The patient remains persistently febrile and tachycardic despite Tylenol, Motrin, IV fluids, antibiotics, and pain medications. Rocephin, azithromycin, and Le vaquin given. Patient reported most recent CD4 count is less than 200. Patient likely septic due to inability to mount an effective immune response. Will admit to hospitalist, Dr. Navarrete, for further evaluation. - Differential Diagnosis torsion, orchitis, epidydimitis Critical Care Time: Yes (60) Critical care time in (mins) excluding proc time.: 60 Critical care attestation.: If time is entered above; I have spent that time in minutes in the direct care of this critically ill patient, excluding procedure time. Critical Care Time: 60 minutes ED Disposition Clinical Impression: Acute epididymitis, Sepsis Disposition: OP ADMIT IP TO THIS HOSP Is pt being admited?: Yes Condition: Stable Instructions: Epididymitis (ED) Referrals: PRIMARY CARE, [Referring] - 3-5 Days Forms: STI Treatment and Prevention Time of Disposition: 01:28
--- NOTE | 2018-07-19 21:31 | Ultrasound Report ---
FINAL REPORT PROCEDURE: US TESTICULAR DOPPLER COMP TECHNIQUE: Real-time roldan-scale and color flow Doppler sonography in multiple planes of the scrotum, testicles, and epididymes was performed. Velocity spectral waveform analysis Doppler imaging of the arterial inflow and venous outflow of the testicles was performed with image documentation. CPT 86528 and 46536 HISTORY: left testicular pain and swelling COMPARISON: No prior studies are available for comparison. FINDINGS: RIGHT TESTICLE: Size: 4.5 x 4.0 x 2.1 cm . Appearance: Normal size and echotexture . Arterial blood flow: Normal spectral waveforms, flow velocities and color flow images.. Venous blood flow: Normal spectral waveforms and color flow images. Right epididymis: Normal size and echotexture . Hydrocele: None . LEFT TESTICLE Size: 4.3 x 4.3 x 2.6 cm . Appearance: Normal size and echotexture . Arterial blood flow: Normal spectral waveforms, flow velocities and color flow images.. Venous blood flow: Normal spectral waveforms and color flow images. Leftepididymis: Enlarged measuring 2.3 cm. There is increased blood flow. Hydrocele: Small hydrocele. IMPRESSION: There is no intratesticular mass. There is normal blood flow to the testicles. Left epididymitis. Small left hydrocele
[2018-07-19 21:35] LABS: Bilirubin,Urine NEG (Negative); Blood,Urine NEG (Negative); Color,Urine Yellow (Yellow); Urobilinogen,Urine < 2.0 mg/dL (<2.0)
[2018-07-19] MEDS ORDERED: ZITHROMAX PO ONE (21:56)
[2018-07-19] MEDS ORDERED: DILAUDID IV ONE (23:04)
[2018-07-19] MEDS ORDERED: DILAUDID ONE (23:08)
[2018-07-19] MEDS ORDERED: IBUPROFEN PO ONE (23:28)
[2018-07-20] MEDS ORDERED: LEVAQUIN PO ONE (01:10)
[2018-07-20] MEDS ORDERED: NACL 0.9% 1000 ML 1,000 ML IV ONE (01:13)
[2018-07-20] MEDS ORDERED: NACL 0.9% 1000 ML 1,000 ML ONE (01:16)
[2018-07-20] MEDS ORDERED: SODIUM CHLORIDE FLUSH SYRINGE 10 ML IV PRN (01:19)
--- NOTE | 2018-07-20 01:26 | History and Physical Report ---
History of Present Illness Date of examination: 07/20/18 History of present illness: 28-year-old man with a history of HIV, CD4 count of 180 comes emergency room with complaints of left lip pain that started on Friday. He describes the pain as someone squeezing his testicle, constant, intensity 10/10, no radiation, bet ter with morphine, pain is worse with ambulation in, when he does any kind of maneuver. Admits to fever chills Review of systems Constitutional: no weight loss Ears, eyes, nose, mouth and throat: no nasal congestion, no nasal discharge, no sinus pressure, no vision change, no red eye. Neck: No neck pain or rigidity. Cardiovascular: no palpitations, chest pain Respiratory: no cough, shortness of breath Gastrointestinal: no hematochezia, abdominal pain Genitourinary : no frequency , no hematuria Musculoskeletal: no joint swelling or muscle ache Integumentary: no rash, no pruritis Neurological: no parathesias, no focal weakness Endocrine: no cold or heat intolerance, no polyuria or polydipsia Hematologic/Lymphatic: no easy bruising, no easy bleeding, no gland swelling Allergic/Immunologic: no urticaria, no angioedema. PAST MEDICAL HISTORY:HIV, CD4 count of 180 PAST SURGICAL HISTORY: None SOCIAL HISTORY +alcohol, Deniesb drugs, tobacco FAMILY HISTORY: Hypertension Medications and Allergies Allergies Allergy/AdvReac Type Severity Reaction Status Date / Time No Known Allergies Allergy Unverified 05/05/16 14:17 Home Medications Medication Instructions Recorded Confirmed Last Taken Type Darunavir/Cobicistat (Nf) 1 each PO DAILY 08/11/16 08/11/16 Unknown History [Prezcobix 800 mg-150 mg (Nf)] Dolutegravir Sodium [Tivicay] 50 mg PO DAILY 08/11/16 08/11/16 Unknown History Tenofovir [Viread] 300 mg PO QDAY 08/11/16 08/11/16 Unknown History Active Meds: Active Medications Sodium Chloride (Nacl 0.9% 1000 Ml) 1,000 mls @ 999 mls/hr IV BOLUS ONE Stop: 07/20/18 02:13 Last Admin: 07/20/18 01:19 Dose: 999 mls/hr Documented by: Exam - Physical Exam Narrative exam: General Apperance: The patient lying in bed, breathing comfortable HEENT: Normocephalic, atraumatic. Pupils equally round and reactive to light, EOMI, no sclericterus or JVD or thyromegaly or nodule. , no carotid bruit, mucous membranes moist, no exudate or erythema Heart: S1-S2, regular is rhythm Lungs: Clear to auscultation bilaterally, breathing comfortable Abdomen: Positive bowel sounds, soft, nontender, nondistended, no organomegaly Extremities: Left testicle swollen, tender, no erythema, No edema cyanosis clubbing Skin: no rash, nodule, warm and dry Neuro: cranial nerves 2-12 intact, speech is fluent, motor/sensory intact - Constitutional Vitals: Temp Pulse Resp BP Pulse Ox 100.8 F H 120 H 18 146/80 97 07/20/18 00:55 07/20/18 00:55 07/20/18 00:55 07/20/18 00:55 07/20/18 00:55 Results - Labs CBC & Chem 7: 07/19/18 19:56 07/19/18 19:56 Labs: Abnormal lab results 07/19/18 07/19/18 07/19/18 Range/Units 19:56 19:56 21:09 MCHC 35 H (32-34) % RDW 13.1 L (13.2-15.2) % [place] % (Auto) 10.3 H (0.0-7.3) % Lymph # 1.1 L (1.2-5.4) K/mm3 Seg Neutrophils % 74.9 H (40.0-70.0) % Sodium 135 L (137-145) mmol/L Chloride 96.4 L (98-107) mmol/L BUN 8 L (9-20) mg/dL Glucose 114 H (75-100) mg/dL Urine WBC (Auto) 24.0 H (0.0-6.0) /HPF Assessment and Plan Testicular ultrasound reviewed Assessment Sepsis Epididymitis of the left testicle HIV Plan Start IV fluids, IV antibiotics, follow cultures DVT prophylaxis
[2018-07-20] MEDS: NACL 0.9% 1000 ML 1,000 ML IV SCH ×3 (04:43→19:53)
[2018-07-20] MEDS: MORPHINE IV PRN ×4 (06:04→19:52)
[2018-07-20 07:12] LABS: Hemoglobin 14.4 gm/dl (11.8-15.2); Mean Corpuscular HGB Conc 34 % (32-34); Mean Corpuscular Volume 90 fl (84-94); Platelet Count 201 K/mm3 (140-440); Red Blood Count 4.66 M/mm3 (3.65-5.03); Red Cell Distribution Width 13.3 % (13.2-15.2)
[2018-07-20 07:36] LABS: BUN/Creatinine Ratio 7; Blood Urea Nitrogen 7 mg/dL (9-20); Calcium 8.2 mg/dL (8.4-10.2); Hemolysis Index 2
[2018-07-20 08:30] LABS: Basophils % (Manual) 0 % (0.0-1.8); Eosinophils % (Manual) 0 % (0.0-4.3); Total Cells Counted 100
[2018-07-20 08:32] LABS: Anisocytosis 1+; Platelet Estimate Consistent w Auto
[2018-07-20] MEDS ORDERED: LOVENOX SUB-Q SCH (10:00)
[2018-07-20] MEDS: ROCEPHIN/NS 1 GM/50 ML 1 GM/50 ML BAG IV SCH (10:07)
[2018-07-20] MEDS: LOVENOX SUB-Q SCH (10:08)
[2018-07-20] MEDS: SODIUM CHLORIDE FLUSH SYRINGE 10 ML IV SCH ×2 (10:09→23:06)
--- NOTE | 2018-07-20 18:45 | Event Note ---
Date: 07/20/18 28-year-old male patient was admitted this morning with, left epididymitis and hydrocele Patient is started on antibiotics, medical records reviewed, Agree with current management Plan of care is reviewed for the patient and his, closely monitor Possible discharge in 1-2 days stable, they will consult urology if no improvement
[2018-07-20] MEDS: TYLENOL PO PRN (18:57)
[2018-07-20] MEDS: LEVAQUIN 500MG/100ML 500 MG/100 ML BAG IV SCH (23:05)
[2018-07-21] MEDS: TYLENOL PO PRN ×4 (00:14→23:55)
[2018-07-21] MEDS: MORPHINE IV PRN ×4 (00:15→23:36)
[2018-07-21] MEDS: ZOFRAN IV PRN (00:16)
[2018-07-21] MEDS: NACL 0.9% 1000 ML 1,000 ML IV SCH ×3 (03:18→21:21)
[2018-07-21] MEDS: LOVENOX SUB-Q SCH (10:51)
[2018-07-21] MEDS: ROCEPHIN/NS 1 GM/50 ML 1 GM/50 ML BAG IV SCH (10:51)
--- NOTE | 2018-07-21 14:51 | Progress Note ---
Assessment and Plan Assessment and plan: --Lt. Epididymitis: on Rocephin and Levaquin, follow cultures, supportive care --Persistent fevers; secondary to sepsis Continue empiric antibiotics, follow cultures, ID evaluation --Sepsis: Secondary to epididymitis, scrotal support IV antibiotics, antipyretics, follow cultures --HIV : cont current management --DVT prophylaxis; Lovenox Closely monitor the patient and adjust management as needed Plan of care reviewed with the patient and his nurse History Interval history: Patient seen and examined medical records reviewed Continues to have pain in the left scrotum Febrile MAXIMUM TEMPERATURE 102 Mild distress Vital signs reviewed Hospitalist Physical - Constitutional Vitals: Temp Pulse Resp BP Pulse Ox 100.2 F H 102 H 20 145/86 100 07/21/18 11:16 07/21/18 11:16 07/21/18 11:16 07/21/18 11:16 07/21/18 11:16 General appearance: Present: no acute distress, well-nourished - EENT Eyes: Present: PERRL, EOM intact - Neck Neck: Present: supple, normal ROM - Respiratory Respiratory effort: normal Respiratory: bilateral: diminished, negative: rales, rhonchi, wheezing - Cardiovascular Rhythm: regular Heart Sounds: Present: S1 & S2 - Extremities Extremities: no ischemia, No edema - Abdominal General gastrointestinal: soft, non-tender, non-distended, normal bowel sounds - Integumentary Integumentary: Present: clear, warm, dry, erythema - Psychiatric Psychiatric: appropriate mood/affect, cooperative - Neurologic Neurologic: CNII-XII intact, moves all extremities - Additional findings Additional findings: Swelling tenderness left scrotum Results - Labs CBC & Chem 7: 07/20/18 06:53 07/20/18 06:53 Labs: Laboratory Last Values WBC 9.8 K/mm3 (4.5-11.0) 07/20/18 06:53 RBC 4.66 M/mm3 (3.65-5.03) 07/20/18 06:53 Hgb 14.4 gm/dl (11.8-15.2) 07/20/18 06:53 Hct 42.0 % (35.5-45.6) 07/20/18 06:53 MCV 90 fl (84-94) 07/20/18 06:53 MCH 31 pg (28-32) 07/20/18 06:53 MCHC 34 % (32-34) 07/20/18 06:53 RDW 13.3 % (13.2-15.2) 07/20/18 06:53 Plt Count 201 K/mm3 (140-440) 07/20/18 06:53 Lymph % (Auto) 14.6 % (13.4-35.0) 07/19/18 19:56 [place] % (Auto) 10.3 % (0.0-7.3) H 07/19/18 19:56 Eos % (Auto) 0.0 % (0.0-4.3) 07/19/18 19:56 Baso % (Auto) 0.2 % (0.0-1.8) 07/19/18 19:56 Lymph # 1.1 K/mm3 (1.2-5.4) L 07/19/18 19:56 [place] # 0.8 K/mm3 (0.0-0.8) 07/19/18 19:56 Eos # 0.0 K/mm3 (0.0-0.4) 07/19/18 19:56 Baso # 0.0 K/mm3 (0.0-0.1) 07/19/18 19:56 Add Manual Diff Complete 07/20/18 06:53 Total Counted 100 07/20/18 06:53 Seg Neutrophils % 74.9 % (40.0-70.0) H 07/19/18 19:56 Seg Neuts % (Manual) 83.0 % (40.0-70.0) H 07/20/18 06:53 Band Neutrophils % 0 % 07/20/18 06:53 Lymphocytes % (Manual) 13.0 % (13.4-35.0) L 07/20/18 06:53 Reactive Lymphs % (Man) 0 % 07/20/18 06:53 Monocytes % (Manual) 4.0 % (0.0-7.3) 07/20/18 06:53 Eosinophils % (Manual) 0 % (0.0-4.3) 07/20/18 06:53 Basophils % (Manual) 0 % (0.0-1.8) 07/20/18 06:53 Metamyelocytes % 0 % 07/20/18 06:53 Myelocytes % 0 % 07/20/18 06:53 Promyelocytes % 0 % 07/20/18 06:53 Blast Cells % 0 % 07/20/18 06:53 Nucleated RBC % Not Reportable 07/20/18 06:53 Seg Neutrophils # 5.8 K/mm3 (1.8-7.7) 07/19/18 19:56 Seg Neutrophils # Man 8.1 K/mm3 (1.8-7.7) H 07/20/18 06:53 Band Neutrophils # 0.0 K/mm3 07/20/18 06:53 Lymphocytes # (Manual) 1.3 K/mm3 (1.2-5.4) 07/20/18 06:53 Abs React Lymphs (Man) 0.0 K/mm3 07/20/18 06:53 Monocytes # (Manual) 0.4 K/mm3 (0.0-0.8) 07/20/18 06:53 Eosinophils # (Manual) 0.0 K/mm3 (0.0-0.4) 07/20/18 06:53 Basophils # (Manual) 0.0 K/mm3 (0.0-0.1) 07/20/18 06:53 Metamyelocytes # 0.0 K/mm3 07/20/18 06:53 Myelocytes # 0.0 K/mm3 07/20/18 06:53 Promyelocytes # 0.0 K/mm3 07/20/18 06:53 Blast Cells # 0.0 K/mm3 07/20/18 06:53 WBC Morphology Not Reportable 07/20/18 06:53 Hypersegmented Neuts Not Reportable 07/20/18 06:53 Hyposegmented Neuts Not Reportable 07/20/18 06:53 Hypogranular Neuts Not Reportable 07/20/18 06:53 Smudge Cells Not Reportable 07/20/18 06:53 Toxic Granulation Not Reportable 07/20/18 06:53 Toxic Vacuolation Not Reportable 07/20/18 06:53 Dohle Bodies Not Reportable 07/20/18 06:53 Pelger-Huet Anomaly Not Reportable 07/20/18 06:53 Supa Rods Not Reportable 07/20/18 06:53 Platelet Estimate Consistent w auto 07/20/18 06:53 Clumped Platelets Not Reportable 07/20/18 06:53 Plt Clumps, EDTA Not Reportable 07/20/18 06:53 Large Platelets Not Reportable 07/20/18 06:53 Giant Platelets Not Reportable 07/20/18 06:53 Platelet Satelliting Not Reportable 07/20/18 06:53 Plt Morphology Comment Not Reportable 07/20/18 06:53 RBC Morphology Not Reportable 07/20/18 06:53 Dimorphic RBCs Not Reportable 07/20/18 06:53 Polychromasia Not Reportable 07/20/18 06:53 Hypochromasia Not Reportable 07/20/18 06:53 Poikilocytosis Not Reportable 07/20/18 06:53 Anisocytosis 1+ 07/20/18 06:53 Microcytosis Not Reportable 07/20/18 06:53 Macrocytosis Not Reportable 07/20/18 06:53 Spherocytes Not Reportable 07/20/18 06:53 Pappenheimer Bodies Not Reportable 07/20/18 06:53 Sickle Cells Not Reportable 07/20/18 06:53 Target Cells Not Reportable 07/20/18 06:53 Tear Drop Cells Not Reportable 07/20/18 06:53 Ovalocytes Not Reportable 07/20/18 06:53 Helmet Cells Not Reportable 07/20/18 06:53 [place] Bodies Not Reportable 07/20/18 06:53 [place] Rings Not Reportable 07/20/18 06:53 Maria [place]anda Cells Not Reportable 07/20/18 06:53 Bite Cells Not Reportable 07/20/18 06:53 Crenated Cell Not Reportable 07/20/18 06:53 Elliptocytes Not Reportable 07/20/18 06:53 Acanthocytes (Spur) Not Reportable 07/20/18 06:53 Rouleaux Not Reportable 07/20/18 06:53 Hemoglobin C Crystals Not Reportable 07/20/18 06:53 Schistocytes Not Reportable 07/20/18 06:53 Malaria parasites Not Reportable 07/20/18 06:53 Carlo Bodies Not Reportable 07/20/18 06:53 Hem Pathologist Commnt No 07/20/18 06:53 Sodium 140 mmol/L (137-145) 07/20/18 06:53 Potassium 3.9 mmol/L (3.6-5.0) 07/20/18 06:53 Chloride 100.6 mmol/L (98-107) 07/20/18 06:53 Carbon Dioxide 25 mmol/L (22-30) 07/20/18 06:53 Anion Gap 18 mmol/L 07/20/18 06:53 BUN 7 mg/dL (9-20) L 07/20/18 06:53 Creatinine 1.0 mg/dL (0.8-1.5) 07/20/18 06:53 Estimated GFR > 60 ml/min 07/20/18 06:53 BUN/Creatinine Ratio 7 % 07/20/18 06:53 Glucose 111 mg/dL (75-100) H 07/20/18 06:53 POC Glucose 96 (70-105) 07/20/18 09:02 Lactic Acid 1.10 mmol/L (0.7-2.0) 07/19/18 20:16 Calcium 8.2 mg/dL (8.4-10.2) L 07/20/18 06:53 Urine Color Yellow (Yellow) 07/19/18 21:09 Urine Turbidity Clear (Clear) 07/19/18 21:09 Urine pH 5.0 (5.0-7.0) 07/19/18 21:09 Ur Specific [place] 1.023 (1.003-1.030) 07/19/18 21:09 Urine Protein 100 mg/dl mg/dL (Negative) 07/19/18 21:09 Urine Glucose (UA) Neg mg/dL (Negative) 07/19/18 21:09 Urine Ketones Neg mg/dL (Negative) 07/19/18 21:09 Urine Blood Neg (Negative) 07/19/18 21:09 Urine Nitrite Neg (Negative) 07/19/18 21:09 Urine Bilirubin Neg (Negative) 07/19/18 21:09 Urine Urobilinogen < 2.0 mg/dL (<2.0) 07/19/18 21:09 Ur Leukocyte Esterase Sm (Negative) 07/19/18 21:09 Urine WBC (Auto) 24.0 /HPF (0.0-6.0) H 07/19/18 21:09 Urine RBC (Auto) 3.0 /HPF (0.0-6.0) 07/19/18 21:09 U Epithel Cells (Auto) < 1.0 /HPF (0-13.0) 07/19/18 21:09
[2018-07-21] MEDS: SODIUM CHLORIDE FLUSH SYRINGE 10 ML IV SCH ×2 (15:12→22:39)
[2018-07-21] MEDS: LEVAQUIN 500MG/100ML 500 MG/100 ML BAG IV SCH (21:23)
[2018-07-22] MEDS: MORPHINE IV PRN ×5 (03:59→21:52)
[2018-07-22] MEDS: NACL 0.9% 1000 ML 1,000 ML IV SCH ×2 (05:18→13:32)
[2018-07-22 06:11] LABS: Basophils % (Auto) 0.1 % (0.0-1.8); Eosinophils % (Auto) 0.1 % (0.0-4.3); Hemoglobin 13.3 gm/dl (11.8-15.2); Lymphocytes # (Auto) 1.6 K/mm3 (1.2-5.4); Lymphocytes % (Auto) 14.3 % (13.4-35.0); Mean Corpuscular HGB Conc 33 % (32-34); Mean Corpuscular Volume 91 fl (84-94); Monocytes # (Auto) 0.8 K/mm3 (0.0-0.8); Monocytes % (Auto) 6.7 % (0.0-7.3); Platelet Count 169 K/mm3 (140-440); Red Blood Count 4.38 M/mm3 (3.65-5.03); Red Cell Distribution Width 13.2 % (13.2-15.2)
[2018-07-22 06:30] LABS: BUN/Creatinine Ratio 6; Blood Urea Nitrogen 5 mg/dL (9-20); Calcium 7.8 mg/dL (8.4-10.2); Hemolysis Index 6
[2018-07-22] MEDS: ROCEPHIN/NS 1 GM/50 ML 1 GM/50 ML BAG IV SCH (09:46)
[2018-07-22] MEDS: LOVENOX SUB-Q SCH (09:50)
[2018-07-22] MEDS: SODIUM CHLORIDE FLUSH SYRINGE 10 ML IV SCH ×2 (12:19→21:54)
--- NOTE | 2018-07-22 13:56 | Consultation ---
History of Present Illness - Reason for Consult Consult date: 07/22/18 Left epididymitis, HIV Requesting physician: ROE HYMAN - History of Present Illness The patient is a 28-year-old male with history of HIV, has been on medications and been undetectable for the last few years, most recent CD4 count was 190. He presented to the emergency room on 07/19/2018 with complaints of left testicular pain and swelling. He was started on antibiotics. Ultrasound revealed epidid ymitis. Infectious diseases was consulted for further management. Patient reports compliance with his HIV medications, has brought his pillbox and is taking them appropriately. He reports being treated for gonorrhea and chlamydia in June 2018 based on positive test results however he states he h as not been sexually active in about a year. When he switched doctors due to lack of insurance, he started going to [facility] which is when they ran several STD tests, but denied any symptoms at that time. He admits to MSM behavior. Denies any smoking, drinks occasionally. Since admission, in spite of antibiotics, he thinks the swelling and pain have continued to worsen. Continues to spike fevers. Review of Systems: General: fevers + HEENT: no new visual disturbance Respiratory: No cough, sputum, hemoptysis or shortness of breath Cardiovascular: No chest pain, syncope Gastrointestinal: No nausea, vomiting or diarrhea Genitourinary: No dysuria or hematuria Musculoskeletal: No new or worsening neck pain or back pain Neurologic: No headaches, seizures Hematologic: No easy bruising or bleeding Endocrine: No night sweats or acute weight loss Skin: negative for rash, jaundice Psychiatric: No suicidal or homicidal ideation Medications and Allergies Allergies Allergy/AdvReac Type Severity Reaction Status Date / Time No Known Allergies Allergy Unverified 05/05/16 14:17 Home Medications Medication Instructions Recorded Confirmed Last Taken Type Darunavir/Cobicistat (Nf) 1 each PO DAILY 08/11/16 08/11/16 Unknown History [Prezcobix 800 mg-150 mg (Nf)] Dolutegravir Sodium [Tivicay] 50 mg PO DAILY 08/11/16 08/11/16 Unknown History Tenofovir [Viread] 300 mg PO QDAY 08/11/16 08/11/16 Unknown History Active Meds: Active Medications Acetaminophen (Tylenol) 650 mg PO Q4H PRN PRN Reason: Pain MILD(1-3)/Fever >100.5/[place]LIN Last Admin: 07/21/18 23:55 Dose: 650 mg Documented by: Doxycycline Hyclate (Vibramycin) 100 mg PO BID [facility] Enoxaparin Sodium (Lovenox) 40 mg SUB-Q QDAY@1000 ZHOU Last Admin: 07/22/18 09:50 Dose: 40 mg Documented by: Sodium Chloride (Nacl 0.9% 1000 Ml) 1,000 mls @ 150 mls/hr IV DIRECT ZHOU Last Admin: 07/22/18 13:32 Dose: 150 mls/hr Documented by: Ceftriaxone Sodium (Rocephin/Ns 2 Gm/100 Ml) 2 gm in 100 mls @ 200 mls/hr IV Q24HR [facility]; Protocol Miscellaneous Medication (Darunavir/Cobicistat (Nf)) 1 each PO DAILY [facility] Morphine Sulfate (Morphine) 2 mg IV Q4H PRN PRN Reason: Pain, Moderate (4-6) Last Admin: 07/22/18 12:18 Dose: 2 mg Documented by: Ondansetron HCl (Zofran) 4 mg IV Q4H PRN PRN Reason: Nausea And Vomiting Last Admin: 07/21/18 00:16 Dose: 4 mg Documented by: Sodium Chloride (Sodium Chloride Flush Syringe 10 Ml) 10 ml IV BID [facility] Last Admin: 07/22/18 12:19 Dose: 10 ml Documented by: Sodium Chloride (Sodium Chloride Flush Syringe 10 Ml) 10 ml IV PRN PRN PRN Reason: LINE FLUSH Tenofovir Disoproxil Fumarate (Viread) 300 mg PO QDAY [facility] Physical Examination - Physical Exam Narrative exam: Physical Exam: Constitutional: Alert, cooperative. No acute distress Head, Ears, Nose: Normocephalic, atraumatic. External ears, nose normal Eyes: Conjunctivae/corneas clear. No icterus. No ptosis. Neck: Supple, no meningeal signs Oral: dentition fair, no thrush Cardiovascular: S1, S2 normal. Respiratory: Good air entry, clear to auscultation bilaterally GI: Soft, non-tender; bowel sounds normal. No peritoneal signs : left testicle with significant swelling, firm and tender. No penile lesions Musculoskeletal: No pedal edema, no cyanosis. Skin: No rash or abscess Hem/Lymphatic: No palpable cervical or supraclavicular nodes. No lymphangitis Psych: Mood ok. Affect normal Neurological: Awake, alert, oriented. No gross abnormality - Constitutional Vitals: Vital Signs Temp Pulse Resp BP Pulse Ox 102.8 F H 101 H 20 139/90 99 07/22/18 12:48 07/22/18 12:48 07/22/18 12:48 07/22/18 12:48 07/22/18 12:48 Temperature -Last 24 Hours Temperature 102.8 F Temperature 100.3 F Temperature 100.3 F Temperature 102.8 F Results - Labs CBC & Chem 7: 07/22/18 05:53 07/22/18 05:53 Labs: Abnormal lab results 07/22/18 07/22/18 Range/Units 05:53 05:53 WBC 11.4 H (4.5-11.0) K/mm3 Seg Neutrophils % 78.8 H (40.0-70.0) % Seg Neutrophils # 9.0 H (1.8-7.7) K/mm3 Potassium 3.4 L (3.6-5.0) mmol/L Chloride 97.5 L (98-107) mmol/L BUN 5 L (9-20) mg/dL Calcium 7.8 L (8.4-10.2) mg/dL Assessment and Plan Cultures: 07/20/2018 blood culture: No growth 07/20/2018 urine culture: No growth A/P: 28-year-old male with HIV: #1 Left epididymitis: Worsening on antibiotics. Does report a history of chlamydia and gonorrhea in the past but has not been sexually active in the last 1 year or so. We will increase ceftriaxone dose to 2 g every 24 hours and also add doxycycline. Discontinue levofloxacin. Given worsening in spite of antibiotics, we repeat a stat left testicular ultrasound and also recommend urology consult. #2 HIV: Reportedly well controlled. On Descovy, Prezcobix and Tivicay, taking his own supply. Recs: RPR ordered Please collect Gonorrhea Chlamydia NAAT sample Repeat STAT left testicular US ordered Urology consult given worsening d/darleen levofloxacin increased Ceftriaxone dose to 2 gm daily started Doxycycline d/w MD Alexis [facility] C: [phone] O: [phone] F: [phone]
[2018-07-22] MEDS ORDERED: VIBRAMYCIN PO SCH (14:00)
--- NOTE | 2018-07-22 15:05 | Ultrasound Report ---
ULTRASOUND SCROTAL INDICATION: Worsening left epididymitis. COMPARISON: 07/19/2018. FINDINGS: Longitudinal and transverse grayscale and color flow sonographic evaluation of the scrotum and its contents again demonstrates bilateral testicular blood flow, though increased resistance now noted on the left with absent diastolic flow as on images 25-26. No suspicious intratesticular lesions, though parenchyma may be slightly heterogeneous, more so on the left. Moderate left scrotal edema also noted. RIGHT TESTICLE measures 4.7 x 2.4 x 2.5 cm. Left epididymal head is 0.8 cm, image 14. No hydrocele. LEFT TESTICLE estimated at 5 x 2.6 x 4.5 cm. Small complex peritesticular hydrocele noted with multiple intrinsic septations/echogenicities. Extensive heterogeneity/hypervascular enlargement measuring up to 4.8 cm noted about the left epididymal head region as on images 32-36 with an isolated left epididymal head measurement approximately 1.4 cm as on image 36, where recognized. CONCLUSION: 1. Interval change in left testicular blood flow pattern with high resistance flow now suspected, possibly secondary to worsening inflammation/epididymitis, as described above. Please also correlate clinically. 2. Other findings, including small complex left hydrocele and left scrotal edema. 3. Right testicle appears unremarkable. Thank you for the opportunity to participate in this patient's care.
[2018-07-22] MEDS: ROCEPHIN/NS 2 GM/100 ML 2 GM/100 ML BAG IV SCH (15:28)
[2018-07-22] MEDS: DOXYCYCLINE HYCLATE 100 MG in NACL 0.9% 250ML 250 ML IV SCH ×2 (15:31→21:55)
--- NOTE | 2018-07-22 16:05 | Consultation ---
History of Present Illness - Reason for Consult Consult date: 07/22/18 - History of Present Illness 28-year-old male presents to ED with left testicular pain 5 days. Patient states he began to experience pain 5 days ago. It then went away for one day, but returned. Patient reports constant pain for the last 3 days. Patient reports onset at rest. Denies any trauma to his groin area. Pt has history of HIV, seen at the [facility]. steve epididymitis, no abscess exam - swollen left testes (3x) A/P no surgical intervention needed at this time continue abx Medications and Allergies Allergies Allergy/AdvReac Type Severity Reaction Status Date / Time No Known Allergies Allergy Unverified 05/05/16 14:17 Home Medications Medication Instructions Recorded Confirmed Last Taken Type Darunavir/Cobicistat (Nf) 1 each PO DAILY 08/11/16 08/11/16 Unknown History [Prezcobix 800 mg-150 mg (Nf)] Dolutegravir Sodium [Tivicay] 50 mg PO DAILY 08/11/16 08/11/16 Unknown History Tenofovir [Viread] 300 mg PO QDAY 08/11/16 08/11/16 Unknown History Active Meds: Active Medications Acetaminophen (Tylenol) 650 mg PO Q4H PRN PRN Reason: Pain MILD(1-3)/Fever >100.5/[place] Last Admin: 07/21/18 23:55 Dose: 650 mg Documented by: Enoxaparin Sodium (Lovenox) 40 mg SUB-Q QDAY@1000 ZHOU Last Admin: 07/22/18 09:50 Dose: 40 mg Documented by: Sodium Chloride (Nacl 0.9% 1000 Ml) 1,000 mls @ 150 mls/hr IV DIRECT ZHOU Last Admin: 07/22/18 13:32 Dose: 150 mls/hr Documented by: Ceftriaxone Sodium (Rocephin/Ns 2 Gm/100 Ml) 2 gm in 100 mls @ 200 mls/hr IV Q24HR [facility]; Protocol Last Admin: 07/22/18 15:28 Dose: 200 mls/hr Documented by: Doxycycline Hyclate 100 mg/ (Sodium Chloride) 250 mls @ 250 mls/hr IV Q12HR [facility]; Protocol Last Admin: 07/22/18 15:31 Dose: 250 mls/hr Documented by: Miscellaneous Medication (Darunavir/Cobicistat (Nf)) 1 each PO DAILY [facility] Morphine Sulfate (Morphine) 2 mg IV Q4H PRN PRN Reason: Pain, Moderate (4-6) Last Admin: 07/22/18 12:18 Dose: 2 mg Documented by: Ondansetron HCl (Zofran) 4 mg IV Q4H PRN PRN Reason: Nausea And Vomiting Last Admin: 07/21/18 00:16 Dose: 4 mg Documented by: Sodium Chloride (Sodium Chloride Flush Syringe 10 Ml) 10 ml IV BID [facility] Last Admin: 07/22/18 12:19 Dose: 10 ml Documented by: Sodium Chloride (Sodium Chloride Flush Syringe 10 Ml) 10 ml IV PRN PRN PRN Reason: LINE FLUSH Tenofovir Disoproxil Fumarate (Viread) 300 mg PO QDAY [facility] Exam - Constitutional Vitals: Temp Pulse Resp BP Pulse Ox 102.8 F H 101 H 20 139/90 99 07/22/18 12:48 07/22/18 12:48 07/22/18 12:48 07/22/18 12:48 07/22/18 12:48 Results - Labs CBC & Chem 7: 07/22/18 05:53 07/22/18 05:53 Labs: Abnormal lab results 07/22/18 07/22/18 Range/Units 05:53 05:53 WBC 11.4 H (4.5-11.0) K/mm3 Seg Neutrophils % 78.8 H (40.0-70.0) % Seg Neutrophils # 9.0 H (1.8-7.7) K/mm3 Potassium 3.4 L (3.6-5.0) mmol/L Chloride 97.5 L (98-107) mmol/L BUN 5 L (9-20) mg/dL Calcium 7.8 L (8.4-10.2) mg/dL
--- NOTE | 2018-07-22 19:21 | Progress Note ---
Assessment and Plan Assessment and plan: --Lt. Epididymitis: on Rocephin and Levaquin, follow cultures, supportive care --Persistent fevers; secondary to sepsis Continue empiric antibiotics, follow cultures, ID evaluation --Sepsis: Secondary to epididymitis, scrotal support IV antibiotics, antipyretics, follow cultures, urology consult if needed --HIV : cont current management --DVT prophylaxis; Lovenox Closely monitor the patient and adjust management as needed Plan of care reviewed with the patient and his nurse History Interval history: Patient seen and examined medical records reviewed Continues to have fever prescription for pain significantly improved Vital signs noted Hospitalist Physical - Constitutional Vitals: Temp Pulse Resp BP Pulse Ox 102.8 F H 101 H 20 139/90 99 07/22/18 12:48 07/22/18 12:48 07/22/18 12:48 07/22/18 12:48 07/22/18 12:48 General appearance: Present: no acute distress, well-nourished - EENT Eyes: Present: PERRL, EOM intact - Neck Neck: Present: supple, normal ROM - Respiratory Respiratory effort: normal Respiratory: bilateral: diminished, negative: rales, rhonchi, wheezing - Cardiovascular Rhythm: regular Heart Sounds: Present: S1 & S2 - Extremities Extremities: no ischemia, No edema - Abdominal General gastrointestinal: soft, non-tender, non-distended, normal bowel sounds - Integumentary Integumentary: Present: clear, warm - Psychiatric Psychiatric: appropriate mood/affect, cooperative - Neurologic Neurologic: CNII-XII intact, moves all extremities Results - Labs CBC & Chem 7: 07/22/18 05:53 07/22/18 05:53 Labs: Laboratory Last Values WBC 11.4 K/mm3 (4.5-11.0) H 07/22/18 05:53 RBC 4.38 M/mm3 (3.65-5.03) 07/22/18 05:53 Hgb 13.3 gm/dl (11.8-15.2) 07/22/18 05:53 Hct 40.0 % (35.5-45.6) 07/22/18 05:53 MCV 91 fl (84-94) 07/22/18 05:53 MCH 30 pg (28-32) 07/22/18 05:53 MCHC 33 % (32-34) 07/22/18 05:53 RDW 13.2 % (13.2-15.2) 07/22/18 05:53 Plt Count 169 K/mm3 (140-440) 07/22/18 05:53 Lymph % (Auto) 14.3 % (13.4-35.0) 07/22/18 05:53 [place] % (Auto) 6.7 % (0.0-7.3) 07/22/18 05:53 Eos % (Auto) 0.1 % (0.0-4.3) 07/22/18 05:53 Baso % (Auto) 0.1 % (0.0-1.8) 07/22/18 05:53 Lymph # 1.6 K/mm3 (1.2-5.4) 07/22/18 05:53 [place] # 0.8 K/mm3 (0.0-0.8) 07/22/18 05:53 Eos # 0.0 K/mm3 (0.0-0.4) 07/22/18 05:53 Baso # 0.0 K/mm3 (0.0-0.1) 07/22/18 05:53 Add Manual Diff Complete 07/20/18 06:53 Total Counted 100 07/20/18 06:53 Seg Neutrophils % 78.8 % (40.0-70.0) H 07/22/18 05:53 Seg Neuts % (Manual) 83.0 % (40.0-70.0) H 07/20/18 06:53 Band Neutrophils % 0 % 07/20/18 06:53 Lymphocytes % (Manual) 13.0 % (13.4-35.0) L 07/20/18 06:53 Reactive Lymphs % (Man) 0 % 07/20/18 06:53 Monocytes % (Manual) 4.0 % (0.0-7.3) 07/20/18 06:53 Eosinophils % (Manual) 0 % (0.0-4.3) 07/20/18 06:53 Basophils % (Manual) 0 % (0.0-1.8) 07/20/18 06:53 Metamyelocytes % 0 % 07/20/18 06:53 Myelocytes % 0 % 07/20/18 06:53 Promyelocytes % 0 % 07/20/18 06:53 Blast Cells % 0 % 07/20/18 06:53 Nucleated RBC % Not Reportable 07/20/18 06:53 Seg Neutrophils # 9.0 K/mm3 (1.8-7.7) H 07/22/18 05:53 Seg Neutrophils # Man 8.1 K/mm3 (1.8-7.7) H 07/20/18 06:53 Band Neutrophils # 0.0 K/mm3 07/20/18 06:53 Lymphocytes # (Manual) 1.3 K/mm3 (1.2-5.4) 07/20/18 06:53 Abs React Lymphs (Man) 0.0 K/mm3 07/20/18 06:53 Monocytes # (Manual) 0.4 K/mm3 (0.0-0.8) 07/20/18 06:53 Eosinophils # (Manual) 0.0 K/mm3 (0.0-0.4) 07/20/18 06:53 Basophils # (Manual) 0.0 K/mm3 (0.0-0.1) 07/20/18 06:53 Metamyelocytes # 0.0 K/mm3 07/20/18 06:53 Myelocytes # 0.0 K/mm3 07/20/18 06:53 Promyelocytes # 0.0 K/mm3 07/20/18 06:53 Blast Cells # 0.0 K/mm3 07/20/18 06:53 WBC Morphology Not Reportable 07/20/18 06:53 Hypersegmented Neuts Not Reportable 07/20/18 06:53 Hyposegmented Neuts Not Reportable 07/20/18 06:53 Hypogranular Neuts Not Reportable 07/20/18 06:53 Smudge Cells Not Reportable 07/20/18 06:53 Toxic Granulation Not Reportable 07/20/18 06:53 Toxic Vacuolation Not Reportable 07/20/18 06:53 Dohle Bodies Not Reportable 07/20/18 06:53 Pelger-Huet Anomaly Not Reportable 07/20/18 06:53 Supa Rods Not Reportable 07/20/18 06:53 Platelet Estimate Consistent w auto 07/20/18 06:53 Clumped Platelets Not Reportable 07/20/18 06:53 Plt Clumps, EDTA Not Reportable 07/20/18 06:53 Large Platelets Not Reportable 07/20/18 06:53 Giant Platelets Not Reportable 07/20/18 06:53 Platelet Satelliting Not Reportable 07/20/18 06:53 Plt Morphology Comment Not Reportable 07/20/18 06:53 RBC Morphology Not Reportable 07/20/18 06:53 Dimorphic RBCs Not Reportable 07/20/18 06:53 Polychromasia Not Reportable 07/20/18 06:53 Hypochromasia Not Reportable 07/20/18 06:53 Poikilocytosis Not Reportable 07/20/18 06:53 Anisocytosis 1+ 07/20/18 06:53 Microcytosis Not Reportable 07/20/18 06:53 Macrocytosis Not Reportable 07/20/18 06:53 Spherocytes Not Reportable 07/20/18 06:53 Pappenheimer Bodies Not Reportable 07/20/18 06:53 Sickle Cells Not Reportable 07/20/18 06:53 Target Cells Not Reportable 07/20/18 06:53 Tear Drop Cells Not Reportable 07/20/18 06:53 Ovalocytes Not Reportable 07/20/18 06:53 Helmet Cells Not Reportable 07/20/18 06:53 [place] Bodies Not Reportable 07/20/18 06:53 [place] Rings Not Reportable 07/20/18 06:53 [place] Cells Not Reportable 07/20/18 06:53 Bite Cells Not Reportable 07/20/18 06:53 Crenated Cell Not Reportable 07/20/18 06:53 Elliptocytes Not Reportable 07/20/18 06:53 Acanthocytes (Spur) Not Reportable 07/20/18 06:53 Rouleaux Not Reportable 07/20/18 06:53 Hemoglobin C Crystals Not Reportable 07/20/18 06:53 Schistocytes Not Reportable 07/20/18 06:53 Malaria parasites Not Reportable 07/20/18 06:53 Carlo Bodies Not Reportable 07/20/18 06:53 Hem Pathologist Commnt No 07/20/18 06:53 Sodium 137 mmol/L (137-145) 07/22/18 05:53 Potassium 3.4 mmol/L (3.6-5.0) L 07/22/18 05:53 Chloride 97.5 mmol/L (98-107) L 07/22/18 05:53 Carbon Dioxide 28 mmol/L (22-30) 07/22/18 05:53 Anion Gap 15 mmol/L 07/22/18 05:53 BUN 5 mg/dL (9-20) L 07/22/18 05:53 Creatinine 0.9 mg/dL (0.8-1.5) 07/22/18 05:53 Estimated GFR > 60 ml/min 07/22/18 05:53 BUN/Creatinine Ratio 6 % 07/22/18 05:53 Glucose 99 mg/dL (75-100) 07/22/18 05:53 POC Glucose 96 (70-105) 07/20/18 09:02 Lactic Acid 1.10 mmol/L (0.7-2.0) 07/19/18 20:16 Calcium 7.8 mg/dL (8.4-10.2) L 07/22/18 05:53 Urine Color Yellow (Yellow) 07/19/18 21:09 Urine Turbidity Clear (Clear) 07/19/18 21:09 Urine pH 5.0 (5.0-7.0) 07/19/18 21:09 Ur Specific [place] 1.023 (1.003-1.030) 07/19/18 21:09 Urine Protein 100 mg/dl mg/dL (Negative) 07/19/18 21:09 Urine Glucose (UA) Neg mg/dL (Negative) 07/19/18 21:09 Urine Ketones Neg mg/dL (Negative) 07/19/18 21:09 Urine Blood Neg (Negative) 07/19/18 21:09 Urine Nitrite Neg (Negative) 07/19/18 21:09 Urine Bilirubin Neg (Negative) 07/19/18 21:09 Urine Urobilinogen < 2.0 mg/dL (<2.0) 07/19/18 21:09 Ur Leukocyte Esterase Sm (Negative) 07/19/18 21:09 Urine WBC (Auto) 24.0 /HPF (0.0-6.0) H 07/19/18 21:09 Urine RBC (Auto) 3.0 /HPF (0.0-6.0) 07/19/18 21:09 U Epithel Cells (Auto) < 1.0 /HPF (0-13.0) 07/19/18 21:09
[2018-07-22] MEDS: TYLENOL PO PRN (22:02)
[2018-07-23] MEDS: NACL 0.9% 1000 ML 1,000 ML IV SCH ×3 (00:27→16:01)
[2018-07-23] MEDS: MORPHINE IV PRN ×5 (04:03→21:51)
[2018-07-23] MEDS: TYLENOL PO PRN ×3 (05:58→23:49)
--- NOTE | 2018-07-23 08:57 | Progress Note ---
Assessment and Plan Assessment and plan: --Lt. Epididymitis: Urology evaluation and recommendations noted and appreciated No surgical intervention, advised to continue current antibiotics ID adjusted the medications to on Rocephin and doxycycline, cultures negative to date . --Persistent fevers; secondary to sepsis, febrile, today MAXIMUM TEMPERATURE 102 Continue empiric antibiotics, follow cultures, ID following --Sepsis: Secondary to epididymitis, scrotal support IV antibiotics, antipyretics, follow cultures, urology consult if needed --HIV : cont current management --DVT prophylaxis; Lovenox Closely monitor the patient and adjust management as needed Consults and recommendations noted and appreciated Plan of care reviewed with the patient and his nurse Hospitalist Physical - Constitutional Vitals: Temp Pulse Resp BP Pulse Ox 102.4 F H 118 H 20 131/76 97 07/23/18 04:47 07/23/18 04:47 07/23/18 04:47 07/23/18 04:47 07/23/18 04:47 General appearance: Present: no acute distress, well-nourished Results - Labs CBC & Chem 7: 07/22/18 05:53 07/22/18 05:53 Labs: Laboratory Last Values WBC 11.4 K/mm3 (4.5-11.0) H 07/22/18 05:53 RBC 4.38 M/mm3 (3.65-5.03) 07/22/18 05:53 Hgb 13.3 gm/dl (11.8-15.2) 07/22/18 05:53 Hct 40.0 % (35.5-45.6) 07/22/18 05:53 MCV 91 fl (84-94) 07/22/18 05:53 MCH 30 pg (28-32) 07/22/18 05:53 MCHC 33 % (32-34) 07/22/18 05:53 RDW 13.2 % (13.2-15.2) 07/22/18 05:53 Plt Count 169 K/mm3 (140-440) 07/22/18 05:53 Lymph % (Auto) 14.3 % (13.4-35.0) 07/22/18 05:53 [place] % (Auto) 6.7 % (0.0-7.3) 07/22/18 05:53 Eos % (Auto) 0.1 % (0.0-4.3) 07/22/18 05:53 Baso % (Auto) 0.1 % (0.0-1.8) 07/22/18 05:53 Lymph # 1.6 K/mm3 (1.2-5.4) 07/22/18 05:53 [place]pp # 0.8 K/mm3 (0.0-0.8) 07/22/18 05:53 Eos # 0.0 K/mm3 (0.0-0.4) 07/22/18 05:53 Baso # 0.0 K/mm3 (0.0-0.1) 07/22/18 05:53 Add Manual Diff Complete 07/20/18 06:53 Total Counted 100 07/20/18 06:53 Seg Neutrophils % 78.8 % (40.0-70.0) H 07/22/18 05:53 Seg Neuts % (Manual) 83.0 % (40.0-70.0) H 07/20/18 06:53 Band Neutrophils % 0 % 07/20/18 06:53 Lymphocytes % (Manual) 13.0 % (13.4-35.0) L 07/20/18 06:53 Reactive Lymphs % (Man) 0 % 07/20/18 06:53 Monocytes % (Manual) 4.0 % (0.0-7.3) 07/20/18 06:53 Eosinophils % (Manual) 0 % (0.0-4.3) 07/20/18 06:53 Basophils % (Manual) 0 % (0.0-1.8) 07/20/18 06:53 Metamyelocytes % 0 % 07/20/18 06:53 Myelocytes % 0 % 07/20/18 06:53 Promyelocytes % 0 % 07/20/18 06:53 Blast Cells % 0 % 07/20/18 06:53 Nucleated RBC % Not Reportable 07/20/18 06:53 Seg Neutrophils # 9.0 K/mm3 (1.8-7.7) H 07/22/18 05:53 Seg Neutrophils # Man 8.1 K/mm3 (1.8-7.7) H 07/20/18 06:53 Band Neutrophils # 0.0 K/mm3 07/20/18 06:53 Lymphocytes # (Manual) 1.3 K/mm3 (1.2-5.4) 07/20/18 06:53 Abs React Lymphs (Man) 0.0 K/mm3 07/20/18 06:53 Monocytes # (Manual) 0.4 K/mm3 (0.0-0.8) 07/20/18 06:53 Eosinophils # (Manual) 0.0 K/mm3 (0.0-0.4) 07/20/18 06:53 Basophils # (Manual) 0.0 K/mm3 (0.0-0.1) 07/20/18 06:53 Metamyelocytes # 0.0 K/mm3 07/20/18 06:53 Myelocytes # 0.0 K/mm3 07/20/18 06:53 Promyelocytes # 0.0 K/mm3 07/20/18 06:53 Blast Cells # 0.0 K/mm3 07/20/18 06:53 WBC Morphology Not Reportable 07/20/18 06:53 Hypersegmented Neuts Not Reportable 07/20/18 06:53 Hyposegmented Neuts Not Reportable 07/20/18 06:53 Hypogranular Neuts Not Reportable 07/20/18 06:53 Smudge Cells Not Reportable 07/20/18 06:53 Toxic Granulation Not Reportable 07/20/18 06:53 Toxic Vacuolation Not Reportable 07/20/18 06:53 Dohle Bodies Not Reportable 07/20/18 06:53 Pelger-Huet Anomaly Not Reportable 07/20/18 06:53 Supa Rods Not Reportable 07/20/18 06:53 Platelet Estimate Consistent w auto 07/20/18 06:53 Clumped Platelets Not Reportable 07/20/18 06:53 Plt Clumps, EDTA Not Reportable 07/20/18 06:53 Large Platelets Not Reportable 07/20/18 06:53 Giant Platelets Not Reportable 07/20/18 06:53 Platelet Satelliting Not Reportable 07/20/18 06:53 Plt Morphology Comment Not Reportable 07/20/18 06:53 RBC Morphology Not Reportable 07/20/18 06:53 Dimorphic RBCs Not Reportable 07/20/18 06:53 Polychromasia Not Reportable 07/20/18 06:53 Hypochromasia Not Reportable 07/20/18 06:53 Poikilocytosis Not Reportable 07/20/18 06:53 Anisocytosis 1+ 07/20/18 06:53 Microcytosis Not Reportable 07/20/18 06:53 Macrocytosis Not Reportable 07/20/18 06:53 Spherocytes Not Reportable 07/20/18 06:53 Pappenheimer Bodies Not Reportable 07/20/18 06:53 Sickle Cells Not Reportable 07/20/18 06:53 Target Cells Not Reportable 07/20/18 06:53 Tear Drop Cells Not Reportable 07/20/18 06:53 Ovalocytes Not Reportable 07/20/18 06:53 Helmet Cells Not Reportable 07/20/18 06:53 [place] Bodies Not Reportable 07/20/18 06:53 [place] Rings Not Reportable 07/20/18 06:53 [place] Cells Not Reportable 07/20/18 06:53 Bite Cells Not Reportable 07/20/18 06:53 Crenated Cell Not Reportable 07/20/18 06:53 Elliptocytes Not Reportable 07/20/18 06:53 Acanthocytes (Spur) Not Reportable 07/20/18 06:53 Rouleaux Not Reportable 07/20/18 06:53 Hemoglobin C Crystals Not Reportable 07/20/18 06:53 Schistocytes Not Reportable 07/20/18 06:53 Malaria parasites Not Reportable 07/20/18 06:53 Carlo Bodies Not Reportable 07/20/18 06:53 Hem Pathologist Commnt No 07/20/18 06:53 Sodium 137 mmol/L (137-145) 07/22/18 05:53 Potassium 3.4 mmol/L (3.6-5.0) L 07/22/18 05:53 Chloride 97.5 mmol/L (98-107) L 07/22/18 05:53 Carbon Dioxide 28 mmol/L (22-30) 07/22/18 05:53 Anion Gap 15 mmol/L 07/22/18 05:53 BUN 5 mg/dL (9-20) L 07/22/18 05:53 Creatinine 0.9 mg/dL (0.8-1.5) 07/22/18 05:53 Estimated GFR > 60 ml/min 07/22/18 05:53 BUN/Creatinine Ratio 6 % 07/22/18 05:53 Glucose 99 mg/dL (75-100) 07/22/18 05:53 POC Glucose 96 (70-105) 07/20/18 09:02 Lactic Acid 1.10 mmol/L (0.7-2.0) 07/19/18 20:16 Calcium 7.8 mg/dL (8.4-10.2) L 07/22/18 05:53 Urine Color Yellow (Yellow) 07/19/18 21:09 Urine Turbidity Clear (Clear) 07/19/18 21:09 Urine pH 5.0 (5.0-7.0) 07/19/18 21:09 Ur Specific [place] 1.023 (1.003-1.030) 07/19/18 21:09 Urine Protein 100 mg/dl mg/dL (Negative) 07/19/18 21:09 Urine Glucose (UA) Neg mg/dL (Negative) 07/19/18 21:09 Urine Ketones Neg mg/dL (Negative) 07/19/18 21:09 Urine Blood Neg (Negative) 07/19/18 21:09 Urine Nitrite Neg (Negative) 07/19/18 21:09 Urine Bilirubin Neg (Negative) 07/19/18 21:09 Urine Urobilinogen < 2.0 mg/dL (<2.0) 07/19/18 21:09 Ur Leukocyte Esterase Sm (Negative) 07/19/18 21:09 Urine WBC (Auto) 24.0 /HPF (0.0-6.0) H 07/19/18 21:09 Urine RBC (Auto) 3.0 /HPF (0.0-6.0) 07/19/18 21:09 U Epithel Cells (Auto) < 1.0 /HPF (0-13.0) 07/19/18 21:09
[2018-07-23] MEDS: ROCEPHIN/NS 2 GM/100 ML 2 GM/100 ML BAG IV SCH (09:57)
[2018-07-23] MEDS: LOVENOX SUB-Q SCH (09:58)
--- NOTE | 2018-07-23 10:10 | Progress Note ---
Assessment and Plan Cultures: 07/20/2018 blood culture: No growth 07/20/2018 urine culture: No growth A/P: 28-year-old male with HIV: #1 Left epididymitis: Worsening on antibiotics. Does report a history of chlamydia and gonorrhea in the past but has not been sexually active in the last 1 year or so. We will increase ceftriaxone dose to 2 g every 24 hours and also add doxycycline. Discontinue levofloxacin. Given worsening in spite of antibiotics, we repeat a stat left testicular ultrasound and also recommend urology consult. Repeat testicular US - Interval change in left testicular blood flow pattern with high resistance flow now suspected, possibly secondary to worsening inflammation/epididymitis. Small complex left hydrocele and left scrotal edema. #2 HIV: Reportedly well controlled. On Descovy, Prezcobix and Tivicay, taking his own supply. #3 Fevers: continuing to spike fevers, continue ceftriaxone, doxycycline, add vancomycin. Recs: f/u RPR ordered f/u Gonorrhea Chlamydia NAAT sample f/u Urology consult Continue increased dose of Ceftriaxone, 2 gm daily, D2 Continue Doxycycline, D2 Start Vancomycin 1 gm IV q 8H [facility] M: [phone] O:[phone] Subjective Date of service: 07/23/18 Interval history: Patient seen and examined. Stated that he continues to have testicular pain, spiking fevers. Denies SOB or rashes. Nurses notes, labs, reports reviewed, discussed with patient. Objective - Exam Narrative Exam: Constitutional: Alert, cooperative. No acute distress Head, Ears, Nose: Normocephalic, atraumatic. External ears, nose normal Eyes: Conjunctivae/corneas clear. No icterus. No ptosis. Neck: Supple, no meningeal signs Oral: dentition fair, no thrush Cardiovascular: S1, S2 normal. Respiratory: Good air entry, clear to auscultation bilaterally GI: Soft, non-tender; bowel sounds normal. No peritoneal signs : left testicle with significant swelling, firm and tender. No penile lesions Musculoskeletal: No pedal edema, no cyanosis. Skin: No rash or abscess Hem/Lymphatic: No palpable cervical or supraclavicular nodes. No lymphangitis Psych: Mood ok. Affect normal Neurological: Awake, alert, oriented. No gross abnormality - Constitutional Vitals: Vital Signs Temp Pulse Resp BP Pulse Ox 102.4 F H 118 H 20 131/76 97 07/23/18 04:47 07/23/18 04:47 07/23/18 04:47 07/23/18 04:47 07/23/18 04:47 Temperature -Last 24 Hours Temperature 102.4 F Temperature 99.2 F Temperature 99.7 F Temperature 102.8 F - Labs CBC & Chem 7: 07/22/18 05:53 07/22/18 05:53
[2018-07-23] MEDS: DOXYCYCLINE HYCLATE 100 MG in NACL 0.9% 250ML 250 ML IV SCH ×2 (11:40→21:51)
[2018-07-23] MEDS ORDERED: VANCOMYCIN PHARMACY TO DOSE IV SCH (15:00)
[2018-07-23] MEDS: ZOFRAN IV PRN (17:38)
[2018-07-23] MEDS: VANCOMYCIN/NS 1 GM/250 ML 1 GM/250 ML BAG IV SCH ×2 (17:40→23:48)
[2018-07-23] MEDS: SODIUM CHLORIDE FLUSH SYRINGE 10 ML IV SCH (21:52)
[2018-07-24] MEDS: NACL 0.9% 1000 ML 1,000 ML IV SCH ×2 (03:29→15:13)
[2018-07-24] MEDS: MORPHINE IV PRN ×4 (04:12→18:38)
[2018-07-24 07:46] LABS: Basophils % (Auto) 0.1 % (0.0-1.8); Eosinophils % (Auto) 0.4 % (0.0-4.3); Hemoglobin 12.8 gm/dl (11.8-15.2); Lymphocytes # (Auto) 1.3 K/mm3 (1.2-5.4); Lymphocytes % (Auto) 15.3 % (13.4-35.0); Mean Corpuscular HGB Conc 35 % (32-34); Mean Corpuscular Volume 89 fl (84-94); Monocytes # (Auto) 1.1 K/mm3 (0.0-0.8); Monocytes % (Auto) 13.8 % (0.0-7.3); Platelet Count 212 K/mm3 (140-440); Red Blood Count 4.15 M/mm3 (3.65-5.03); Red Cell Distribution Width 12.8 % (13.2-15.2)
[2018-07-24 07:51] LABS: BUN/Creatinine Ratio 3; Blood Urea Nitrogen 3 mg/dL (9-20); Calcium 7.7 mg/dL (8.4-10.2); Hemolysis Index 6
[2018-07-24] MEDS: VANCOMYCIN/NS 1 GM/250 ML 1 GM/250 ML BAG IV SCH ×2 (08:03→17:43)
[2018-07-24] MEDS: LOVENOX SUB-Q SCH (10:00)
[2018-07-24] MEDS ORDERED: NON-FORMULARY PO SCH ×5 (10:00→16:00)
[2018-07-24] MEDS: ROCEPHIN/NS 2 GM/100 ML 2 GM/100 ML BAG IV SCH (10:01)
[2018-07-24] MEDS: SODIUM CHLORIDE FLUSH SYRINGE 10 ML IV SCH ×3 (10:03→21:29)
--- NOTE | 2018-07-24 10:32 | Progress Note ---
Assessment and Plan Assessment and plan: 28-year-old -[place] male patient with significant history of HIV low CD4 count was admitted with fever and chills and testicular pain, workup consistent with left epididymitis.ID has evaluated adjusted the antibiotics, urology evaluatedat no surgical intervention continue antibiotics, patient continues to have fever, continues to have scrotal pain. If no improvement Reconsult urology --Lt. Epididymitis: Urology evaluation and recommendations noted and appreciated No surgical intervention, advised to continue current antibiotics ID following adjusted Abx, on Rocephin , doxycycline and vancomycin Patient continues to have scrotal pain and swelling and persistent fevers Reconsult urology if no improvement --Persistent fevers; urology evaluated no surgical intervention ID following, supportive care --Sepsis: Secondary to epididymitis, scrotal support IV antibiotics, antipyretics, follow cultures, urology consult if needed --HIV : cont current management --DVT prophylaxis; Lovenox Closely monitor the patient and adjust management as needed Consults and recommendations noted and appreciated Plan of care reviewed with the patient and his nurse History Interval history: Patient seen and examined medical records reviewed Persistent fevers, continues to have pain in the scrotum and penis Alert awake oriented Vital signs reviewed Hospitalist Physical - Constitutional Vitals: Temp Pulse Resp BP Pulse Ox 99.4 F 85 18 141/86 98 07/24/18 05:01 07/24/18 05:01 07/24/18 05:01 07/24/18 05:01 07/24/18 05:01 General appearance: Present: mild distress, well-nourished, other (febrile febrile) - EENT Eyes: Present: PERRL, EOM intact - Neck Neck: Present: supple, normal ROM - Respiratory Respiratory effort: normal Respiratory: bilateral: diminished, negative: rales, rhonchi, wheezing - Cardiovascular Rhythm: regular Heart Sounds: Present: S1 & S2 - Extremities Extremities: no ischemia, No edema - Abdominal General gastrointestinal: soft, non-tender, non-distended, normal bowel sounds - Integumentary Integumentary: Present: clear, warm - Psychiatric Psychiatric: appropriate mood/affect, cooperative - Neurologic Neurologic: CNII-XII intact, moves all extremities Results - Labs CBC & Chem 7: 07/24/18 06:50 07/24/18 06:50 Labs: Laboratory Last Values WBC 8.3 K/mm3 (4.5-11.0) 07/24/18 06:50 RBC 4.15 M/mm3 (3.65-5.03) 07/24/18 06:50 Hgb 12.8 gm/dl (11.8-15.2) 07/24/18 06:50 Hct 37.0 % (35.5-45.6) 07/24/18 06:50 MCV 89 fl (84-94) 07/24/18 06:50 MCH 31 pg (28-32) 07/24/18 06:50 MCHC 35 % (32-34) H 07/24/18 06:50 RDW 12.8 % (13.2-15.2) L 07/24/18 06:50 Plt Count 212 K/mm3 (140-440) 07/24/18 06:50 Lymph % (Auto) 15.3 % (13.4-35.0) 07/24/18 06:50 [place] % (Auto) 13.8 % (0.0-7.3) H 07/24/18 06:50 Eos % (Auto) 0.4 % (0.0-4.3) 07/24/18 06:50 Baso % (Auto) 0.1 % (0.0-1.8) 07/24/18 06:50 Lymph # 1.3 K/mm3 (1.2-5.4) 07/24/18 06:50 [place] # 1.1 K/mm3 (0.0-0.8) H 07/24/18 06:50 Eos # 0.0 K/mm3 (0.0-0.4) 07/24/18 06:50 Baso # 0.0 K/mm3 (0.0-0.1) 07/24/18 06:50 Add Manual Diff Complete 07/20/18 06:53 Total Counted 100 07/20/18 06:53 Seg Neutrophils % 70.4 % (40.0-70.0) H 07/24/18 06:50 Seg Neuts % (Manual) 83.0 % (40.0-70.0) H 07/20/18 06:53 Band Neutrophils % 0 % 07/20/18 06:53 Lymphocytes % (Manual) 13.0 % (13.4-35.0) L 07/20/18 06:53 Reactive Lymphs % (Man) 0 % 07/20/18 06:53 Monocytes % (Manual) 4.0 % (0.0-7.3) 07/20/18 06:53 Eosinophils % (Manual) 0 % (0.0-4.3) 07/20/18 06:53 Basophils % (Manual) 0 % (0.0-1.8) 07/20/18 06:53 Metamyelocytes % 0 % 07/20/18 06:53 Myelocytes % 0 % 07/20/18 06:53 Promyelocytes % 0 % 07/20/18 06:53 Blast Cells % 0 % 07/20/18 06:53 Nucleated RBC % Not Reportable 07/20/18 06:53 Seg Neutrophils # 5.8 K/mm3 (1.8-7.7) 07/24/18 06:50 Seg Neutrophils # Man 8.1 K/mm3 (1.8-7.7) H 07/20/18 06:53 Band Neutrophils # 0.0 K/mm3 07/20/18 06:53 Lymphocytes # (Manual) 1.3 K/mm3 (1.2-5.4) 07/20/18 06:53 Abs React Lymphs (Man) 0.0 K/mm3 07/20/18 06:53 Monocytes # (Manual) 0.4 K/mm3 (0.0-0.8) 07/20/18 06:53 Eosinophils # (Manual) 0.0 K/mm3 (0.0-0.4) 07/20/18 06:53 Basophils # (Manual) 0.0 K/mm3 (0.0-0.1) 07/20/18 06:53 Metamyelocytes # 0.0 K/mm3 07/20/18 06:53 Myelocytes # 0.0 K/mm3 07/20/18 06:53 Promyelocytes # 0.0 K/mm3 07/20/18 06:53 Blast Cells # 0.0 K/mm3 07/20/18 06:53 WBC Morphology Not Reportable 07/20/18 06:53 Hypersegmented Neuts Not Reportable 07/20/18 06:53 Hyposegmented Neuts Not Reportable 07/20/18 06:53 Hypogranular Neuts Not Reportable 07/20/18 06:53 Smudge Cells Not Reportable 07/20/18 06:53 Toxic Granulation Not Reportable 07/20/18 06:53 Toxic Vacuolation Not Reportable 07/20/18 06:53 Dohle Bodies Not Reportable 07/20/18 06:53 Pelger-Huet Anomaly Not Reportable 07/20/18 06:53 Supa Rods Not Reportable 07/20/18 06:53 Platelet Estimate Consistent w auto 07/20/18 06:53 Clumped Platelets Not Reportable 07/20/18 06:53 Plt Clumps, EDTA Not Reportable 07/20/18 06:53 Large Platelets Not Reportable 07/20/18 06:53 Giant Platelets Not Reportable 07/20/18 06:53 Platelet Satelliting Not Reportable 07/20/18 06:53 Plt Morphology Comment Not Reportable 07/20/18 06:53 RBC Morphology Not Reportable 07/20/18 06:53 Dimorphic RBCs Not Reportable 07/20/18 06:53 Polychromasia Not Reportable 07/20/18 06:53 Hypochromasia Not Reportable 07/20/18 06:53 Poikilocytosis Not Reportable 07/20/18 06:53 Anisocytosis 1+ 07/20/18 06:53 Microcytosis Not Reportable 07/20/18 06:53 Macrocytosis Not Reportable 07/20/18 06:53 Spherocytes Not Reportable 07/20/18 06:53 Pappenheimer Bodies Not Reportable 07/20/18 06:53 Sickle Cells Not Reportable 07/20/18 06:53 Target Cells Not Reportable 07/20/18 06:53 Tear Drop Cells Not Reportable 07/20/18 06:53 Ovalocytes Not Reportable 07/20/18 06:53 Helmet Cells Not Reportable 07/20/18 06:53 [place] Bodies Not Reportable 07/20/18 06:53 [place] Rings Not Reportable 07/20/18 06:53 [place] Cells Not Reportable 07/20/18 06:53 Bite Cells Not Reportable 07/20/18 06:53 Crenated Cell Not Reportable 07/20/18 06:53 Elliptocytes Not Reportable 07/20/18 06:53 Acanthocytes (Spur) Not Reportable 07/20/18 06:53 Rouleaux Not Reportable 07/20/18 06:53 Hemoglobin C Crystals Not Reportable 07/20/18 06:53 Schistocytes Not Reportable 07/20/18 06:53 Malaria parasites Not Reportable 07/20/18 06:53 Carlo Bodies Not Reportable 07/20/18 06:53 Hem Pathologist Commnt No 07/20/18 06:53 Sodium 140 mmol/L (137-145) 07/24/18 06:50 Potassium 3.0 mmol/L (3.6-5.0) L 07/24/18 06:50 Chloride 101.3 mmol/L (98-107) 07/24/18 06:50 Carbon Dioxide 25 mmol/L (22-30) 07/24/18 06:50 Anion Gap 17 mmol/L 07/24/18 06:50 BUN 3 mg/dL (9-20) L 07/24/18 06:50 Creatinine 0.9 mg/dL (0.8-1.5) 07/24/18 06:50 Estimated GFR > 60 ml/min 07/24/18 06:50 BUN/Creatinine Ratio 3 % 07/24/18 06:50 Glucose 96 mg/dL (75-100) 07/24/18 06:50 POC Glucose 96 (70-105) 07/20/18 09:02 Lactic Acid 1.10 mmol/L (0.7-2.0) 07/19/18 20:16 Calcium 7.7 mg/dL (8.4-10.2) L 07/24/18 06:50 Urine Color Yellow (Yellow) 07/19/18 21:09 Urine Turbidity Clear (Clear) 07/19/18 21:09 Urine pH 5.0 (5.0-7.0) 07/19/18 21:09 Ur Specific [place] 1.023 (1.003-1.030) 07/19/18 21:09 Urine Protein 100 mg/dl mg/dL (Negative) 07/19/18 21:09 Urine Glucose (UA) Neg mg/dL (Negative) 07/19/18 21:09 Urine Ketones Neg mg/dL (Negative) 07/19/18 21:09 Urine Blood Neg (Negative) 07/19/18 21:09 Urine Nitrite Neg (Negative) 07/19/18 21:09 Urine Bilirubin Neg (Negative) 07/19/18 21:09 Urine Urobilinogen < 2.0 mg/dL (<2.0) 07/19/18 21:09 Ur Leukocyte Esterase Sm (Negative) 07/19/18 21:09 Urine WBC (Auto) 24.0 /HPF (0.0-6.0) H 07/19/18 21:09 Urine RBC (Auto) 3.0 /HPF (0.0-6.0) 07/19/18 21:09 U Epithel Cells (Auto) < 1.0 /HPF (0-13.0) 07/19/18 21:09 RPR Titer 1:64 07/22/18 14:20 RPR Reactive (Nonreactive) 07/22/18 14:20
--- NOTE | 2018-07-24 10:59 | Progress Note ---
Assessment and Plan Cultures: 07/20/2018 blood culture: No growth 07/20/2018 urine culture: No growth A/P: 28-year-old male with HIV: #1 Left epididymitis: Worsening on antibiotics. Does report a history of chlamydia and gonorrhea in the past but has not been sexually active in the last 1 year or so. We will increase ceftriaxone dose to 2 g every 24 hours and also add doxycycline. Discontinue levofloxacin. Given worsening in spite of antibiotics, we repeat a stat left testicular ultrasound Per Dr. Baeza, testicular US findings are due to increased inflammation, no role for surgery at this time. Repeat testicular US - Interval change in left testicular blood flow pattern with high resistance flow now suspected, possibly secondary to worsening inflammation/epididymitis. Small complex left hydrocele and left scrotal edema. -RPR - reactive (treated June,) #2 HIV: Reportedly well controlled. On Descovy, Prezcobix and Tivicay, taking his own supply. #3 Fevers: continuing to spike fevers, continue ceftriaxone, doxycycline, vancomycin. Add Levofloxacin PO. Recs: f/u Gonorrhea Chlamydia NAAT sample Continue increased dose of Ceftriaxone, 2 gm daily, D3 Continue Doxycycline, D3 Continue Vancomycin 1 gm IV q 8H, D1 Add Levofloxacin 750mg PO every [address] Rivera will be community service organization director this weekend, . Please call for questions. [facility] M: [phone] O:[phone] Subjective Date of service: 07/24/18 Interval history: Patient seen and examined. Stated that he continues to have worsening testicular pain, spiking fevers. Denies SOB or rashes. Nurses notes, labs, reports reviewed, discussed with patient. Objective - Exam Narrative Exam: Constitutional: Alert, cooperative. worsening testicular pain. Head, Ears, Nose: Normocephalic, atraumatic. External ears, nose normal Eyes: Conjunctivae/corneas clear. No icterus. No ptosis. Neck: Supple, no meningeal signs Oral: dentition fair, no thrush Cardiovascular: S1, S2 normal. Respiratory: Good air entry, clear to auscultation bilaterally GI: Soft, non-tender; bowel sounds normal. No peritoneal signs : left testicle with significant swelling, firm and tender. No penile lesions Musculoskeletal: No pedal edema, no cyanosis. Skin: No rash or abscess Hem/Lymphatic: No palpable cervical or supraclavicular nodes. No lymphangitis Psych: Mood ok. Affect normal Neurological: Awake, alert, oriented. No gross abnormality - Constitutional Vitals: Vital Signs Temp Pulse Resp BP Pulse Ox 99.4 F 85 18 141/86 98 07/24/18 05:01 07/24/18 05:01 07/24/18 05:01 07/24/18 05:01 07/24/18 05:01 Temperature -Last 24 Hours Temperature 99.4 F Temperature 101.0 F Temperature 100.6 F Temperature 102.8 F - Labs CBC & Chem 7: 07/24/18 06:50 07/24/18 06:50 Labs: Abnormal lab results 07/24/18 07/24/18 Range/Units 06:50 06:50 MCHC 35 H (32-34) % RDW 12.8 L (13.2-15.2) % [place] % (Auto) 13.8 H (0.0-7.3) % [place] # 1.1 H (0.0-0.8) K/mm3 Seg Neutrophils % 70.4 H (40.0-70.0) % Potassium 3.0 L (3.6-5.0) mmol/L BUN 3 L (9-20) mg/dL Calcium 7.7 L (8.4-10.2) mg/dL
[2018-07-24] MEDS: DOXYCYCLINE HYCLATE 100 MG in NACL 0.9% 250ML 250 ML IV SCH ×2 (12:29→23:17)
[2018-07-24] MEDS: TYLENOL PO PRN (17:49)
[2018-07-24] MEDS: NON-FORMULARY (Darunavir/Cobicistat (Nf) 1 EACH) PO SCH ×2 (17:54→17:55)
[2018-07-24] MEDS: TIVICAY PO SCH ×2 (17:54→17:55)
[2018-07-24] MEDS: VIREAD PO SCH ×2 (17:54→17:55)
[2018-07-24] MEDS: LEVAQUIN PO SCH (21:28)
[2018-07-24] MEDS: RESTORIL PO PRN (22:28)
[2018-07-25] MEDS: VANCOMYCIN/NS 1 GM/250 ML 1 GM/250 ML BAG IV SCH ×2 (00:39→09:13)
[2018-07-25] MEDS: NACL 0.9% 1000 ML 1,000 ML IV SCH ×3 (01:42→22:52)
[2018-07-25] MEDS: MORPHINE IV PRN ×4 (01:42→22:57)
[2018-07-25] MEDS ORDERED: NON-FORMULARY PO SCH ×2 (08:00→10:00)
[2018-07-25] MEDS: LEVAQUIN PO SCH (11:40)
[2018-07-25] MEDS: LOVENOX SUB-Q SCH (11:40)
[2018-07-25] MEDS: ROCEPHIN/NS 2 GM/100 ML 2 GM/100 ML BAG IV SCH (11:40)
[2018-07-25] MEDS: SODIUM CHLORIDE FLUSH SYRINGE 10 ML IV SCH ×2 (11:43→22:53)
[2018-07-25] MEDS: NON-FORMULARY PO SCH ×3 (11:48)
[2018-07-25] MEDS: DOXYCYCLINE HYCLATE 100 MG in NACL 0.9% 250ML 250 ML IV SCH ×2 (12:58→22:52)
--- NOTE | 2018-07-25 13:37 | Progress Note ---
Assessment and Plan Assessment and plan: 28-year-old -[place] male patient with significant history of HIV low CD4 count was admitted with fever and chills and testicular pain, workup consistent with left epididymitis.ID has evaluated adjusted the antibiotics, urology evaluatedat * Continue antibiotics per infectious disease * Continue scrotal elevation and pain management * Discharge in 1-2 days Diagnoses Left epididymitis Sepsis HIV/AIDS - History Interval history: Continues to complain of scrotal pain Review of systems Constitutional: No fevers, no malaise, no joint pains CVS: No chest pain, no orthopnea, no dyspnea on exertion, no pedal edema GI: No abdominal pain, no diarrhea, no vomiting, no constipation Respiratory: No shortness of breath, no wheezing, no coughing Hospitalist Physical - Physical exam Narrative exam: General.: Appears well, no distress, nontoxic HEENT: Moist mucous membranes, extraocular muscles intact, no lymphadenopathy Neck: supple Cardiac: S1-S2 heard Lungs: clear to auscultation bilaterally Abdomen: soft , nontender, nondistended, bowel sounds positive Extremities: no edema clubbing or cyanosis Skin: no rash or lesions Neurologic: no gross focal deficits Psych: calm, and cooperative - Constitutional Vitals: Temp Pulse Resp BP Pulse Ox 99.7 F H 80 18 128/77 98 07/25/18 12:21 07/25/18 12:21 07/25/18 12:21 07/25/18 12:21 07/25/18 12:21 General appearance: Present: mild distress, well-nourished, other (febrile febrile) Results - Labs CBC & Chem 7: 07/24/18 06:50 07/24/18 06:50 Labs: Laboratory Last Values WBC 8.3 K/mm3 (4.5-11.0) 07/24/18 06:50 RBC 4.15 M/mm3 (3.65-5.03) 07/24/18 06:50 Hgb 12.8 gm/dl (11.8-15.2) 07/24/18 06:50 Hct 37.0 % (35.5-45.6) 07/24/18 06:50 MCV 89 fl (84-94) 07/24/18 06:50 MCH 31 pg (28-32) 07/24/18 06:50 MCHC 35 % (32-34) H 07/24/18 06:50 RDW 12.8 % (13.2-15.2) L 07/24/18 06:50 Plt Count 212 K/mm3 (140-440) 07/24/18 06:50 Lymph % (Auto) 15.3 % (13.4-35.0) 07/24/18 06:50 [place] % (Auto) 13.8 % (0.0-7.3) H 07/24/18 06:50 Eos % (Auto) 0.4 % (0.0-4.3) 07/24/18 06:50 Baso % (Auto) 0.1 % (0.0-1.8) 07/24/18 06:50 Lymph # 1.3 K/mm3 (1.2-5.4) 07/24/18 06:50 [place] # 1.1 K/mm3 (0.0-0.8) H 07/24/18 06:50 Eos # 0.0 K/mm3 (0.0-0.4) 07/24/18 06:50 Baso # 0.0 K/mm3 (0.0-0.1) 07/24/18 06:50 Add Manual Diff Complete 07/20/18 06:53 Total Counted 100 07/20/18 06:53 Seg Neutrophils % 70.4 % (40.0-70.0) H 07/24/18 06:50 Seg Neuts % (Manual) 83.0 % (40.0-70.0) H 07/20/18 06:53 Band Neutrophils % 0 % 07/20/18 06:53 Lymphocytes % (Manual) 13.0 % (13.4-35.0) L 07/20/18 06:53 Reactive Lymphs % (Man) 0 % 07/20/18 06:53 Monocytes % (Manual) 4.0 % (0.0-7.3) 07/20/18 06:53 Eosinophils % (Manual) 0 % (0.0-4.3) 07/20/18 06:53 Basophils % (Manual) 0 % (0.0-1.8) 07/20/18 06:53 Metamyelocytes % 0 % 07/20/18 06:53 Myelocytes % 0 % 07/20/18 06:53 Promyelocytes % 0 % 07/20/18 06:53 Blast Cells % 0 % 07/20/18 06:53 Nucleated RBC % Not Reportable 07/20/18 06:53 Seg Neutrophils # 5.8 K/mm3 (1.8-7.7) 07/24/18 06:50 Seg Neutrophils # Man 8.1 K/mm3 (1.8-7.7) H 07/20/18 06:53 Band Neutrophils # 0.0 K/mm3 07/20/18 06:53 Lymphocytes # (Manual) 1.3 K/mm3 (1.2-5.4) 07/20/18 06:53 Abs React Lymphs (Man) 0.0 K/mm3 07/20/18 06:53 Monocytes # (Manual) 0.4 K/mm3 (0.0-0.8) 07/20/18 06:53 Eosinophils # (Manual) 0.0 K/mm3 (0.0-0.4) 07/20/18 06:53 Basophils # (Manual) 0.0 K/mm3 (0.0-0.1) 07/20/18 06:53 Metamyelocytes # 0.0 K/mm3 07/20/18 06:53 Myelocytes # 0.0 K/mm3 07/20/18 06:53 Promyelocytes # 0.0 K/mm3 07/20/18 06:53 Blast Cells # 0.0 K/mm3 07/20/18 06:53 WBC Morphology Not Reportable 07/20/18 06:53 Hypersegmented Neuts Not Reportable 07/20/18 06:53 Hyposegmented Neuts Not Reportable 07/20/18 06:53 Hypogranular Neuts Not Reportable 07/20/18 06:53 Smudge Cells Not Reportable 07/20/18 06:53 Toxic Granulation Not Reportable 07/20/18 06:53 Toxic Vacuolation Not Reportable 07/20/18 06:53 Dohle Bodies Not Reportable 07/20/18 06:53 Pel[place]uet Anomaly Not Reportable 07/20/18 06:53 Supa Rods Not Reportable 07/20/18 06:53 Platelet Estimate Consistent w auto 07/20/18 06:53 Clumped Platelets Not Reportable 07/20/18 06:53 Plt Clumps, EDTA Not Reportable 07/20/18 06:53 Large Platelets Not Reportable 07/20/18 06:53 Giant Platelets Not Reportable 07/20/18 06:53 Platelet Satelliting Not Reportable 07/20/18 06:53 Plt Morphology Comment Not Reportable 07/20/18 06:53 RBC Morphology Not Reportable 07/20/18 06:53 Dimorphic RBCs Not Reportable 07/20/18 06:53 Polychromasia Not Reportable 07/20/18 06:53 Hypochromasia Not Reportable 07/20/18 06:53 Poikilocytosis Not Reportable 07/20/18 06:53 Anisocytosis 1+ 07/20/18 06:53 Microcytosis Not Reportable 07/20/18 06:53 Macrocytosis Not Reportable 07/20/18 06:53 Spherocytes Not Reportable 07/20/18 06:53 Pappenheimer Bodies Not Reportable 07/20/18 06:53 Sickle Cells Not Reportable 07/20/18 06:53 Target Cells Not Reportable 07/20/18 06:53 Tear Drop Cells Not Reportable 07/20/18 06:53 Ovalocytes Not Reportable 07/20/18 06:53 Helmet Cells Not Reportable 07/20/18 06:53 [place] Bodies Not Reportable 07/20/18 06:53 [place] Rings Not Reportable 07/20/18 06:53 [place] Cells Not Reportable 07/20/18 06:53 Bite Cells Not Reportable 07/20/18 06:53 Crenated Cell Not Reportable 07/20/18 06:53 Elliptocytes Not Reportable 07/20/18 06:53 Acanthocytes (Spur) Not Reportable 07/20/18 06:53 Rouleaux Not Reportable 07/20/18 06:53 Hemoglobin C Crystals Not Reportable 07/20/18 06:53 Schistocytes Not Reportable 07/20/18 06:53 Malaria parasites Not Reportable 07/20/18 06:53 Carlo Bodies Not Reportable 07/20/18 06:53 Hem Pathologist Commnt No 07/20/18 06:53 Sodium 140 mmol/L (137-145) 07/24/18 06:50 Potassium 3.0 mmol/L (3.6-5.0) L 07/24/18 06:50 Chloride 101.3 mmol/L (98-107) 07/24/18 06:50 Carbon Dioxide 25 mmol/L (22-30) 07/24/18 06:50 Anion Gap 17 mmol/L 07/24/18 06:50 BUN 3 mg/dL (9-20) L 07/24/18 06:50 Creatinine 0.9 mg/dL (0.8-1.5) 07/24/18 06:50 Estimated GFR > 60 ml/min 07/24/18 06:50 BUN/Creatinine Ratio 3 % 07/24/18 06:50 Glucose 96 mg/dL (75-100) 07/24/18 06:50 POC Glucose 96 (70-105) 07/20/18 09:02 Lactic Acid 1.10 mmol/L (0.7-2.0) 07/19/18 20:16 Calcium 7.7 mg/dL (8.4-10.2) L 07/24/18 06:50 Urine Color Yellow (Yellow) 07/19/18 21:09 Urine Turbidity Clear (Clear) 07/19/18 21:09 Urine pH 5.0 (5.0-7.0) 07/19/18 21:09 Ur Specific [place] 1.023 (1.003-1.030) 07/19/18 21:09 Urine Protein 100 mg/dl mg/dL (Negative) 07/19/18 21:09 Urine Glucose (UA) Neg mg/dL (Negative) 07/19/18 21:09 Urine Ketones Neg mg/dL (Negative) 07/19/18 21:09 Urine Blood Neg (Negative) 07/19/18 21:09 Urine Nitrite Neg (Negative) 07/19/18 21:09 Urine Bilirubin Neg (Negative) 07/19/18 21:09 Urine Urobilinogen < 2.0 mg/dL (<2.0) 07/19/18 21:09 Ur Leukocyte Esterase Sm (Negative) 07/19/18 21:09 Urine WBC (Auto) 24.0 /HPF (0.0-6.0) H 07/19/18 21:09 Urine RBC (Auto) 3.0 /HPF (0.0-6.0) 07/19/18 21:09 U Epithel Cells (Auto) < 1.0 /HPF (0-13.0) 07/19/18 21:09 Vancomycin Trough 9.4 ug/mL (5.0-20.0) 07/24/18 15:55 RPR Titer 1:64 07/22/18 14:20 RPR Reactive (Nonreactive) 07/22/18 14:20
[2018-07-25] MEDS: VANCOMYCIN 1,500 MG in NACL 0.9% 500 ML 500 ML IV SCH (16:36)
[2018-07-25] MEDS: TYLENOL PO PRN (18:33)
[2018-07-26] MEDS: VANCOMYCIN 1,500 MG in NACL 0.9% 500 ML 500 ML IV SCH ×4 (00:49→21:52)
[2018-07-26] MEDS: MORPHINE IV PRN ×4 (05:34→21:56)
[2018-07-26] MEDS: NON-FORMULARY PO SCH ×3 (09:56→09:57)
[2018-07-26] MEDS: LEVAQUIN PO SCH (09:56)
[2018-07-26] MEDS: LOVENOX SUB-Q SCH (09:56)
[2018-07-26] MEDS: SODIUM CHLORIDE FLUSH SYRINGE 10 ML IV SCH ×2 (09:58→23:13)
[2018-07-26] MEDS: NACL 0.9% 1000 ML 1,000 ML IV SCH (10:20)
[2018-07-26] MEDS: ROCEPHIN/NS 2 GM/100 ML 2 GM/100 ML BAG IV SCH (10:21)
[2018-07-26] MEDS: DOXYCYCLINE HYCLATE 100 MG in NACL 0.9% 250ML 250 ML IV SCH ×2 (10:21→21:51)
--- NOTE | 2018-07-26 11:07 | Progress Note ---
Assessment and Plan Cultures: 07/20/2018 blood culture: No growth 07/20/2018 urine culture: No growth A/P: 28-year-old male with HIV: #1 Left epididymitis: Improving. . Does report a history of chlamydia and gonorrhea in the past but has not been sexually active in the last 1 year or so. We will increase ceftriaxone dose to 2 g every 24 hours and also add doxycycline. Discontinue levofloxacin. Given worsening in spite of antibiotics, we repeat a stat left testicular ultrasound Per Dr. Baeza, testicular US findings are due to increased inflammation, no role for surgery at this time. Repeat testicular US - Interval change in left testicular blood flow pattern with high resistance flow now suspected, possibly secondary to worsening inflammation/epididymitis. Small complex left hydrocele and left scrotal edema. -RPR - reactive (treated June,) #2 HIV: Reportedly well controlled. On Descovy, Prezcobix and Tivicay, taking his own supply. #3 Fevers: continuing to spike fevers, continue ceftriaxone, doxycycline, vancomycin. Add Levofloxacin PO. Recs: f/u Gonorrhea Chlamydia NAAT sample Continue increased dose of Ceftriaxone, 2 gm daily, D5 of D7 Continue Doxycycline, D5 of D10 Discontiued Vancomycin 1 gm IV q 8H Continue Levofloxacin 750mg PO every 24 hours, D3 of D10 [facility] M: [phone] O:[phone] Subjective Date of service: 07/26/18 Interval history: Patient seen and examined. Stated that his testicular pain and swelling is im proved. Fevers continuing. Nurses notes, labs, reports reviewed, discussed with patient. Objective - Exam Narrative Exam: Constitutional: Alert, cooperative. Testicular pain improving Head, Ears, Nose: Normocephalic, atraumatic. External ears, nose normal Eyes: Conjunctivae/corneas clear. No icterus. No ptosis. Neck: Supple, no meningeal signs Oral: dentition fair, no thrush Cardiovascular: S1, S2 normal. Respiratory: Good air entry, clear to auscultation bilaterally GI: Soft, non-tender; bowel sounds normal. No peritoneal signs : left testicle with significant swelling, firm and tender- improving. No pen ile lesions Musculoskeletal: No pedal edema, no cyanosis. Skin: No rash or abscess Hem/Lymphatic: No palpable cervical or supraclavicular nodes. No lymphangitis Psych: Mood ok. Affect normal Neurological: Awake, alert, oriented. No gross abnormality - Constitutional Vitals: Vital Signs Temp Pulse Resp BP Pulse Ox 99.5 F 74 16 132/78 98 07/26/18 05:34 07/26/18 05:34 07/26/18 05:34 07/26/18 05:34 07/26/18 05:34 Temperature -Last 24 Hours Temperature 99.5 F Temperature 99.7 F Temperature 100.8 F Temperature 99.7 F - Labs CBC & Chem 7: 07/24/18 06:50 07/24/18 06:50 Labs: Abnormal lab results 07/23/18 Range/Units 14:20 T.pallidum Ab (FTA-ABS) Reactive H (Nonreactive)
--- NOTE | 2018-07-26 13:35 | Progress Note ---
Assessment and Plan Assessment and plan: 28-year-old -[place] male patient with significant history of HIV low CD4 count was admitted with fever and chills and testicular pain, workup consistent with left epididymitis.ID has evaluated adjusted the antibiotics, urology eval done who agreed with plan * Continue antibiotics per infectious disease * Continue scrotal elevation and pain management * Discharge in 1-2 days Diagnoses Left epididymitis Sepsis HIV/AIDS - History Interval history: Continues to complain of scrotal pain Review of systems Constitutional: No fevers, no malaise, no joint pains CVS: No chest pain, no orthopnea, no dyspnea on exertion, no pedal edema GI: No abdominal pain, no diarrhea, no vomiting, no constipation Respiratory: No shortness of breath, no wheezing, no coughing Hospitalist Physical - Physical exam Narrative exam: General.: Appears well, no distress, nontoxic HEENT: Moist mucous membranes, extraocular muscles intact, no lymphadenopathy Neck: supple Cardiac: S1-S2 heard Lungs: clear to auscultation bilaterally Abdomen: soft , nontender, nondistended, bowel sounds positive Extremities: no edema clubbing or cyanosis Skin: no rash or lesions Neurologic: no gross focal deficits Psych: calm, and cooperative - Constitutional Vitals: Temp Pulse Resp BP Pulse Ox 99.5 F 85 20 121/102 96 07/26/18 11:51 07/26/18 11:51 07/26/18 11:51 07/26/18 11:51 07/26/18 11:51 General appearance: Present: mild distress, well-nourished, other (febrile febrile) Results - Labs CBC & Chem 7: 07/27/18 10:13 07/24/18 06:50 Labs: Laboratory Last Values WBC 8.3 K/mm3 (4.5-11.0) 07/24/18 06:50 RBC 4.15 M/mm3 (3.65-5.03) 07/24/18 06:50 Hgb 12.8 gm/dl (11.8-15.2) 07/24/18 06:50 Hct 37.0 % (35.5-45.6) 07/24/18 06:50 MCV 89 fl (84-94) 07/24/18 06:50 MCH 31 pg (28-32) 07/24/18 06:50 MCHC 35 % (32-34) H 07/24/18 06:50 RDW 12.8 % (13.2-15.2) L 07/24/18 06:50 Plt Count 212 K/mm3 (140-440) 07/24/18 06:50 Lymph % (Auto) 15.3 % (13.4-35.0) 07/24/18 06:50 [place] % (Auto) 13.8 % (0.0-7.3) H 07/24/18 06:50 Eos % (Auto) 0.4 % (0.0-4.3) 07/24/18 06:50 Baso % (Auto) 0.1 % (0.0-1.8) 07/24/18 06:50 Lymph # 1.3 K/mm3 (1.2-5.4) 07/24/18 06:50 [place] # 1.1 K/mm3 (0.0-0.8) H 07/24/18 06:50 Eos # 0.0 K/mm3 (0.0-0.4) 07/24/18 06:50 Baso # 0.0 K/mm3 (0.0-0.1) 07/24/18 06:50 Add Manual Diff Complete 07/20/18 06:53 Total Counted 100 07/20/18 06:53 Seg Neutrophils % 70.4 % (40.0-70.0) H 07/24/18 06:50 Seg Neuts % (Manual) 83.0 % (40.0-70.0) H 07/20/18 06:53 Band Neutrophils % 0 % 07/20/18 06:53 Lymphocytes % (Manual) 13.0 % (13.4-35.0) L 07/20/18 06:53 Reactive Lymphs % (Man) 0 % 07/20/18 06:53 Monocytes % (Manual) 4.0 % (0.0-7.3) 07/20/18 06:53 Eosinophils % (Manual) 0 % (0.0-4.3) 07/20/18 06:53 Basophils % (Manual) 0 % (0.0-1.8) 07/20/18 06:53 Metamyelocytes % 0 % 07/20/18 06:53 Myelocytes % 0 % 07/20/18 06:53 Promyelocytes % 0 % 07/20/18 06:53 Blast Cells % 0 % 07/20/18 06:53 Nucleated RBC % Not Reportable 07/20/18 06:53 Seg Neutrophils # 5.8 K/mm3 (1.8-7.7) 07/24/18 06:50 Seg Neutrophils # Man 8.1 K/mm3 (1.8-7.7) H 07/20/18 06:53 Band Neutrophils # 0.0 K/mm3 07/20/18 06:53 Lymphocytes # (Manual) 1.3 K/mm3 (1.2-5.4) 07/20/18 06:53 Abs React Lymphs (Man) 0.0 K/mm3 07/20/18 06:53 Monocytes # (Manual) 0.4 K/mm3 (0.0-0.8) 07/20/18 06:53 Eosinophils # (Manual) 0.0 K/mm3 (0.0-0.4) 07/20/18 06:53 Basophils # (Manual) 0.0 K/mm3 (0.0-0.1) 07/20/18 06:53 Metamyelocytes # 0.0 K/mm3 07/20/18 06:53 Myelocytes # 0.0 K/mm3 07/20/18 06:53 Promyelocytes # 0.0 K/mm3 07/20/18 06:53 Blast Cells # 0.0 K/mm3 07/20/18 06:53 WBC Morphology Not Reportable 07/20/18 06:53 Hypersegmented Neuts Not Reportable 07/20/18 06:53 Hyposegmented Neuts Not Reportable 07/20/18 06:53 Hypogranular Neuts Not Reportable 07/20/18 06:53 Smudge Cells Not Reportable 07/20/18 06:53 Toxic Granulation Not Reportable 07/20/18 06:53 Toxic Vacuolation Not Reportable 07/20/18 06:53 Dohle Bodies Not Reportable 07/20/18 06:53 Pelger-Huet Anomaly Not Reportable 07/20/18 06:53 Supa Rods Not Reportable 07/20/18 06:53 Platelet Estimate Consistent w auto 07/20/18 06:53 Clumped Platelets Not Reportable 07/20/18 06:53 Plt Clumps, EDTA Not Reportable 07/20/18 06:53 Large Platelets Not Reportable 07/20/18 06:53 Giant Platelets Not Reportable 07/20/18 06:53 Platelet Satelliting Not Reportable 07/20/18 06:53 Plt Morphology Comment Not Reportable 07/20/18 06:53 RBC Morphology Not Reportable 07/20/18 06:53 Dimorphic RBCs Not Reportable 07/20/18 06:53 Polychromasia Not Reportable 07/20/18 06:53 Hypochromasia Not Reportable 07/20/18 06:53 Poikilocytosis Not Reportable 07/20/18 06:53 Anisocytosis 1+ 07/20/18 06:53 Microcytosis Not Reportable 07/20/18 06:53 Macrocytosis Not Reportable 07/20/18 06:53 Spherocytes Not Reportable 07/20/18 06:53 Pappenheimer Bodies Not Reportable 07/20/18 06:53 Sickle Cells Not Reportable 07/20/18 06:53 Target Cells Not Reportable 07/20/18 06:53 Tear Drop Cells Not Reportable 07/20/18 06:53 Ovalocytes Not Reportable 07/20/18 06:53 Helmet Cells Not Reportable 07/20/18 06:53 [place] Bodies Not Reportable 07/20/18 06:53 [place] Rings Not Reportable 07/20/18 06:53 Maria Fernanda Cells Not Reportable 07/20/18 06:53 Bite Cells Not Reportable 07/20/18 06:53 Crenated Cell Not Reportable 07/20/18 06:53 Elliptocytes Not Reportable 07/20/18 06:53 Acanthocytes (Spur) Not Reportable 07/20/18 06:53 Rouleaux Not Reportable 07/20/18 06:53 Hemoglobin C Crystals Not Reportable 07/20/18 06:53 Schistocytes Not Reportable 07/20/18 06:53 Malaria parasites Not Reportable 07/20/18 06:53 Carlo Bodies Not Reportable 07/20/18 06:53 Hem Pathologist Commnt No 07/20/18 06:53 Sodium 140 mmol/L (137-145) 07/24/18 06:50 Potassium 3.0 mmol/L (3.6-5.0) L 07/24/18 06:50 Chloride 101.3 mmol/L (98-107) 07/24/18 06:50 Carbon Dioxide 25 mmol/L (22-30) 07/24/18 06:50 Anion Gap 17 mmol/L 07/24/18 06:50 BUN 3 mg/dL (9-20) L 07/24/18 06:50 Creatinine 0.9 mg/dL (0.8-1.5) 07/24/18 06:50 Estimated GFR > 60 ml/min 07/24/18 06:50 BUN/Creatinine Ratio 3 % 07/24/18 06:50 Glucose 96 mg/dL (75-100) 07/24/18 06:50 POC Glucose 96 (70-105) 07/20/18 09:02 Lactic Acid 1.10 mmol/L (0.7-2.0) 07/19/18 20:16 Calcium 7.7 mg/dL (8.4-10.2) L 07/24/18 06:50 Urine Color Yellow (Yellow) 07/19/18 21:09 Urine Turbidity Clear (Clear) 07/19/18 21:09 Urine pH 5.0 (5.0-7.0) 07/19/18 21:09 Ur Specific [place] 1.023 (1.003-1.030) 07/19/18 21:09 Urine Protein 100 mg/dl mg/dL (Negative) 07/19/18 21:09 Urine Glucose (UA) Neg mg/dL (Negative) 07/19/18 21:09 Urine Ketones Neg mg/dL (Negative) 07/19/18 21:09 Urine Blood Neg (Negative) 07/19/18 21:09 Urine Nitrite Neg (Negative) 07/19/18 21:09 Urine Bilirubin Neg (Negative) 07/19/18 21:09 Urine Urobilinogen < 2.0 mg/dL (<2.0) 07/19/18 21:09 Ur Leukocyte Esterase Sm (Negative) 07/19/18 21:09 Urine WBC (Auto) 24.0 /HPF (0.0-6.0) H 07/19/18 21:09 Urine RBC (Auto) 3.0 /HPF (0.0-6.0) 07/19/18 21:09 U Epithel Cells (Auto) < 1.0 /HPF (0-13.0) 07/19/18 21:09 Vancomycin Trough 9.4 ug/mL (5.0-20.0) 07/24/18 15:55 RPR Titer 1:64 07/22/18 14:20 RPR Reactive (Nonreactive) 07/22/18 14:20 T.pallidum Ab (FTA-ABS) Reactive (Nonreactive) H 07/23/18 14:20
[2018-07-26] MEDS: TYLENOL PO PRN (18:42)
[2018-07-26] MEDS: RESTORIL PO PRN (21:52)
[2018-07-26] MEDS: ZOFRAN IV PRN (21:56)
[2018-07-27] MEDS: VANCOMYCIN 1,500 MG in NACL 0.9% 500 ML 500 ML IV SCH ×3 (01:51→18:55)
[2018-07-27] MEDS: ZOFRAN IV PRN (05:32)
[2018-07-27] MEDS: MORPHINE IV PRN ×4 (05:32→23:17)
--- NOTE | 2018-07-27 09:35 | Progress Note ---
Assessment and Plan Cultures: 07/20/2018 blood culture: No growth 07/20/2018 urine culture: No growth A/P: 28-year-old male with HIV: #1 Left epididymitis: Improving. . Does report a history of chlamydia and gonorrhea in the past but has not been sexually active in the last 1 year or so. We will increase ceftriaxone dose to 2 g every 24 hours and also add doxycycline. Discontinue levofloxacin. Given worsening in spite of antibiotics, we repeat a stat left testicular ultrasound Per Dr. Baeza, testicular US findi ngs are due to increased inflammation, no role for surgery at this time. Repeat testicular US - Interval change in left testicular blood flow pattern with high resistance flow now suspected, possibly secondary to worsening inflammation/epididymitis. Small complex left hydrocele and left scrotal edema. -RPR - reactive (treated June,) #2 HIV: Reportedly well controlled. On Descovy, Prezcobix and Tivicay, taking his own supply. #3 Fevers: continuing to spike fevers, continue ceftriaxone, doxycycline and Levofloxacin. Recs: f/u Gonorrhea Chlamydia NAAT sample Continue increased dose of Ceftriaxone, 2 gm daily, D6 of D7 Continue Doxycycline, D6 of D10 Continue Levofloxacin 750mg PO every 24 hours, D4 of D10 [facility] M: [phone] O:[phone] Subjective Date of service: 07/27/18 Interval history: Patient seen and examined. Stated that his testicular pain and swelling is improved. Fevers continuing. Discussion regarding follow up with urologist after discharge, verbalized understanding. Objective - Exam Narrative Exam: Constitutional: Alert, cooperative. Testicular pain improving Head, Ears, Nose: Normocephalic, atraumatic. External ears, nose normal Eyes: Conjunctivae/corneas clear. No icterus. No ptosis. Neck: Supple, no meningeal signs Oral: dentition fair, no thrush Cardiovascular: S1, S2 normal. Respiratory: Good air entry, clear to auscultation bilaterally GI: Soft, non-tender; bowel sounds normal. No peritoneal signs : left testicle with significant swelling, firm and tender- improving. No penile lesions Musculoskeletal: No pedal edema, no cyanosis. Skin: No rash or abscess Hem/Lymphatic: No palpable cervical or supraclavicular nodes. No lymphangitis Psych: Mood ok. Affect normal Neurological: Awake, alert, oriented. No gross abnormality - Constitutional Vitals: Vital Signs Temp Pulse Resp BP Pulse Ox 98.3 F 75 18 132/82 99 07/27/18 04:56 07/27/18 04:56 07/27/18 04:56 07/27/18 04:56 07/27/18 04:56 Temperature -Last 24 Hours Temperature 98.3 F Temperature 98.5 F Temperature 98.5 F Temperature 100.5 F Temperature 99.5 F - Labs CBC & Chem 7: 07/27/18 10:13 07/24/18 06:50
[2018-07-27 10:44] LABS: Basophils % (Auto) 0.2 % (0.0-1.8); Eosinophils # (Auto) 0.1 K/mm3 (0.0-0.4); Eosinophils % (Auto) 0.8 % (0.0-4.3); Hematocrit 34.8 % (35.5-45.6); Hemoglobin 12.2 gm/dl (11.8-15.2); Lymphocytes # (Auto) 1.4 K/mm3 (1.2-5.4); Lymphocytes % (Auto) 20.4 % (13.4-35.0); Mean Corpuscular HGB Conc 35 % (32-34); Mean Corpuscular Volume 89 fl (84-94); Monocytes # (Auto) 0.7 K/mm3 (0.0-0.8); Monocytes % (Auto) 10.6 % (0.0-7.3); Platelet Count 358 K/mm3 (140-440); Red Blood Count 3.89 M/mm3 (3.65-5.03); Red Cell Distribution Width 13.1 % (13.2-15.2)
[2018-07-27] MEDS: LOVENOX SUB-Q SCH (10:48)
[2018-07-27] MEDS: LEVAQUIN PO SCH (10:49)
[2018-07-27] MEDS: NON-FORMULARY PO SCH ×3 (10:49→10:50)
[2018-07-27] MEDS: SODIUM CHLORIDE FLUSH SYRINGE 10 ML IV SCH ×2 (10:51→21:39)
[2018-07-27] MEDS: DOXYCYCLINE HYCLATE 100 MG in NACL 0.9% 250ML 250 ML IV SCH ×2 (12:21→21:39)
--- NOTE | 2018-07-27 14:51 | Progress Note ---
Assessment and Plan Assessment and plan: 28-year-old -English male patient with significant history of HIV low CD4 count was admitted with fever and chills and testicular pain, workup consistent with left epididymitis.ID has evaluated adjusted the antibiotics, urology eval done who agreed with plan * Continue antibiotics per infectious disease * Continue scrotal elevation and pain management * Discharge in 1-2 days Diagnoses Left epididymitis Sepsis HIV/AIDS - History Interval history: Continues to complain of scrotal pain Review of systems Constitutional: No fevers, no malaise, no joint pains CVS: No chest pain, no orthopnea, no dyspnea on exertion, no pedal edema GI: No abdominal pain, no diarrhea, no vomiting, no constipation Respiratory: No shortness of breath, no wheezing, no coughing Hospitalist Physical - Physical exam Narrative exam: General.: Appears well, no distress, nontoxic HEENT: Moist mucous membranes, extraocular muscles intact, no lymphadenopathy Neck: supple Cardiac: S1-S2 heard Lungs: clear to auscultation bilaterally Abdomen: soft , nontender, nondistended, bowel sounds positive Extremities: no edema clubbing or cyanosis Skin: no rash or lesions Neurologic: no gross focal deficits Psych: calm, and cooperative - Constitutional Vitals: Temp Pulse Resp BP Pulse Ox 99.8 F H 84 16 134/78 98 07/27/18 12:25 07/27/18 12:25 07/27/18 12:25 07/27/18 12:25 07/27/18 12:25 General appearance: Present: mild distress, well-nourished, other (febrile febrile) Results - Labs CBC & Chem 7: 07/27/18 10:13 07/24/18 06:50 Labs: Laboratory Last Values WBC 6.7 K/mm3 (4.5-11.0) 07/27/18 10:13 RBC 3.89 M/mm3 (3.65-5.03) 07/27/18 10:13 Hgb 12.2 gm/dl (11.8-15.2) 07/27/18 10:13 Hct 34.8 % (35.5-45.6) L 07/27/18 10:13 MCV 89 fl (84-94) 07/27/18 10:13 MCH 32 pg (28-32) 07/27/18 10:13 MCHC 35 % (32-34) H 07/27/18 10:13 RDW 13.1 % (13.2-15.2) L 07/27/18 10:13 Plt Count 358 K/mm3 (140-440) 07/27/18 10:13 Lymph % (Auto) 20.4 % (13.4-35.0) 07/27/18 10:13 [place] % (Auto) 10.6 % (0.0-7.3) H 07/27/18 10:13 Eos % (Auto) 0.8 % (0.0-4.3) 07/27/18 10:13 Baso % (Auto) 0.2 % (0.0-1.8) 07/27/18 10:13 Lymph # 1.4 K/mm3 (1.2-5.4) 07/27/18 10:13 [place] # 0.7 K/mm3 (0.0-0.8) 07/27/18 10:13 Eos # 0.1 K/mm3 (0.0-0.4) 07/27/18 10:13 Baso # 0.0 K/mm3 (0.0-0.1) 07/27/18 10:13 Add Manual Diff Complete 07/20/18 06:53 Total Counted 100 07/20/18 06:53 Seg Neutrophils % 68.0 % (40.0-70.0) 07/27/18 10:13 Seg Neuts % (Manual) 83.0 % (40.0-70.0) H 07/20/18 06:53 Band Neutrophils % 0 % 07/20/18 06:53 Lymphocytes % (Manual) 13.0 % (13.4-35.0) L 07/20/18 06:53 Reactive Lymphs % (Man) 0 % 07/20/18 06:53 Monocytes % (Manual) 4.0 % (0.0-7.3) 07/20/18 06:53 Eosinophils % (Manual) 0 % (0.0-4.3) 07/20/18 06:53 Basophils % (Manual) 0 % (0.0-1.8) 07/20/18 06:53 Metamyelocytes % 0 % 07/20/18 06:53 Myelocytes % 0 % 07/20/18 06:53 Promyelocytes % 0 % 07/20/18 06:53 Blast Cells % 0 % 07/20/18 06:53 Nucleated RBC % Not Reportable 07/20/18 06:53 Seg Neutrophils # 4.6 K/mm3 (1.8-7.7) 07/27/18 10:13 Seg Neutrophils # Man 8.1 K/mm3 (1.8-7.7) H 07/20/18 06:53 Band Neutrophils # 0.0 K/mm3 07/20/18 06:53 Lymphocytes # (Manual) 1.3 K/mm3 (1.2-5.4) 07/20/18 06:53 Abs React Lymphs (Man) 0.0 K/mm3 07/20/18 06:53 Monocytes # (Manual) 0.4 K/mm3 (0.0-0.8) 07/20/18 06:53 Eosinophils # (Manual) 0.0 K/mm3 (0.0-0.4) 07/20/18 06:53 Basophils # (Manual) 0.0 K/mm3 (0.0-0.1) 07/20/18 06:53 Metamyelocytes # 0.0 K/mm3 07/20/18 06:53 Myelocytes # 0.0 K/mm3 07/20/18 06:53 Promyelocytes # 0.0 K/mm3 07/20/18 06:53 Blast Cells # 0.0 K/mm3 07/20/18 06:53 WBC Morphology Not Reportable 07/20/18 06:53 Hypersegmented Neuts Not Reportable 07/20/18 06:53 Hyposegmented Neuts Not Reportable 07/20/18 06:53 Hypogranular Neuts Not Reportable 07/20/18 06:53 Smudge Cells Not Reportable 07/20/18 06:53 Toxic Granulation Not Reportable 07/20/18 06:53 Toxic Vacuolation Not Reportable 07/20/18 06:53 Dohle Bodies Not Reportable 07/20/18 06:53 Pelger-Huet Anomaly Not Reportable 07/20/18 06:53 Spua Rods Not Reportable 07/20/18 06:53 Platelet Estimate Consistent w auto 07/20/18 06:53 Clumped Platelets Not Reportable 07/20/18 06:53 Plt Clumps, EDTA Not Reportable 07/20/18 06:53 Large Platelets Not Reportable 07/20/18 06:53 Giant Platelets Not Reportable 07/20/18 06:53 Platelet Satelliting Not Reportable 07/20/18 06:53 Plt Morphology Comment Not Reportable 07/20/18 06:53 RBC Morphology Not Reportable 07/20/18 06:53 Dimorphic RBCs Not Reportable 07/20/18 06:53 Polychromasia Not Reportable 07/20/18 06:53 Hypochromasia Not Reportable 07/20/18 06:53 Poikilocytosis Not Reportable 07/20/18 06:53 Anisocytosis 1+ 07/20/18 06:53 Microcytosis Not Reportable 07/20/18 06:53 Macrocytosis Not Reportable 07/20/18 06:53 Spherocytes Not Reportable 07/20/18 06:53 Pappenheimer Bodies Not Reportable 07/20/18 06:53 Sickle Cells Not Reportable 07/20/18 06:53 Target Cells Not Reportable 07/20/18 06:53 Tear Drop Cells Not Reportable 07/20/18 06:53 Ovalocytes Not Reportable 07/20/18 06:53 Helmet Cells Not Reportable 07/20/18 06:53 [place] Bodies Not Reportable 07/20/18 06:53 [place] Rings Not Reportable 07/20/18 06:53 Maria Fernanda Cells Not Reportable 07/20/18 06:53 Bite Cells Not Reportable 07/20/18 06:53 Crenated Cell Not Reportable 07/20/18 06:53 Elliptocytes Not Reportable 07/20/18 06:53 Acanthocytes (Spur) Not Reportable 07/20/18 06:53 Rouleaux Not Reportable 07/20/18 06:53 Hemoglobin C Crystals Not Reportable 07/20/18 06:53 Schistocytes Not Reportable 07/20/18 06:53 Malaria parasites Not Reportable 07/20/18 06:53 Carlo Bodies Not Reportable 07/20/18 06:53 Hem Pathologist Commnt No 07/20/18 06:53 Sodium 140 mmol/L (137-145) 07/24/18 06:50 Potassium 3.0 mmol/L (3.6-5.0) L 07/24/18 06:50 Chloride 101.3 mmol/L (98-107) 07/24/18 06:50 Carbon Dioxide 25 mmol/L (22-30) 07/24/18 06:50 Anion Gap 17 mmol/L 07/24/18 06:50 BUN 3 mg/dL (9-20) L 07/24/18 06:50 Creatinine 0.9 mg/dL (0.8-1.5) 07/24/18 06:50 Estimated GFR > 60 ml/min 07/24/18 06:50 BUN/Creatinine Ratio 3 % 07/24/18 06:50 Glucose 96 mg/dL (75-100) 07/24/18 06:50 POC Glucose 96 (70-105) 07/20/18 09:02 Lactic Acid 1.10 mmol/L (0.7-2.0) 07/19/18 20:16 Calcium 7.7 mg/dL (8.4-10.2) L 07/24/18 06:50 Urine Color Yellow (Yellow) 07/19/18 21:09 Urine Turbidity Clear (Clear) 07/19/18 21:09 Urine pH 5.0 (5.0-7.0) 07/19/18 21:09 Ur Specific [place] 1.023 (1.003-1.030) 07/19/18 21:09 Urine Protein 100 mg/dl mg/dL (Negative) 07/19/18 21:09 Urine Glucose (UA) Neg mg/dL (Negative) 07/19/18 21:09 Urine Ketones Neg mg/dL (Negative) 07/19/18 21:09 Urine Blood Neg (Negative) 07/19/18 21:09 Urine Nitrite Neg (Negative) 07/19/18 21:09 Urine Bilirubin Neg (Negative) 07/19/18 21:09 Urine Urobilinogen < 2.0 mg/dL (<2.0) 07/19/18 21:09 Ur Leukocyte Esterase Sm (Negative) 07/19/18 21:09 Urine WBC (Auto) 24.0 /HPF (0.0-6.0) H 07/19/18 21:09 Urine RBC (Auto) 3.0 /HPF (0.0-6.0) 07/19/18 21:09 U Epithel Cells (Auto) < 1.0 /HPF (0-13.0) 07/19/18 21:09 Vancomycin Trough 9.4 ug/mL (5.0-20.0) 07/24/18 15:55 RPR Titer 1:64 07/22/18 14:20 RPR Reactive (Nonreactive) 07/22/18 14:20 T.pallidum Ab (FTA-ABS) Reactive (Nonreactive) H 07/23/18 14:20 Nutrition/Malnutrition Assess - Dietary Evaluation Nutrition/Malnutrition Findings: Nutrition Notes Start: 07/27/18 08: 56 Freq: Status: Active Protocol: Document 07/27/18 08:56 MARTHA (Rec: 07/27/18 09:01 MARTHA [email or web address]) Nutrition Notes Need for Assessment generated from: LOS Initial or Follow up Brief Note Current Diagnosis Sepsis Other Pertinent Diagnosis HIV, (L) epididymitis Current Diet Regular Labs/Tests Reviewed Pertinent Medications Reviewed Height 5 ft 9 in Weight 74.2 kg Usual Body Weight 70.45 kg [place] Body Weight (kg) 72.72 BMI 24.1 Weight Status Appropriate Subjective/Other Information Pt screened for LOS. He reports that his appetite is " coming back"; requests double portions instead of ONS. Percent of energy/protein needs met: 69% energy 96% pro Is Patient Ambulatory and/or Out of Bed Yes REE-(Har[place]-St. Jeor-ambulatory/OOB) [ 2213.094 [id number]] Calculation Used for Recommendations [place]-St Jeor Additional Notes Pro needs 0.8-1g/k-74g/ day Fluid needs 1ml/kcal Nutrition Intervention Revisit per MD consult or patient Sign Off request:
[2018-07-27] MEDS: ROCEPHIN/NS 2 GM/100 ML 2 GM/100 ML BAG IV SCH (15:01)
[2018-07-27] MEDS: RESTORIL PO PRN (23:17)
[2018-07-28] MEDS: VANCOMYCIN 1,500 MG in NACL 0.9% 500 ML 500 ML IV SCH (01:38)
[2018-07-28] MEDS: MORPHINE IV PRN (09:00)
--- NOTE | 2018-07-28 09:56 | Progress Note ---
Assessment and Plan Cultures: 07/20/2018 blood culture: No growth 07/20/2018 urine culture: No growth A/P: 28-year-old male with HIV: #1 Left epididymitis: Improving. . Does report a history of chlamydia and gonorrhea in the past but has not been sexually active in the last 1 year or so. We will increase ceftriaxone dose to 2 g every 24 hours and also add doxycycline. Discontinue levofloxacin. Given worsening in spite of antibiotics, we repeat a stat left testicular ultrasound Per Dr. Baeza, testicular US findi ngs are due to increased inflammation, no role for surgery at this time. Repeat testicular US - Interval change in left testicular blood flow pattern with high resistance flow now suspected, possibly secondary to worsening inflammation/epididymitis. Small complex left hydrocele and left scrotal edema. -RPR - reactive (treated June,) #2 HIV: Reportedly well controlled. On Descovy, Prezcobix and Tivicay, taking his own supply. #3 Fevers: No fever > 24 hours. discontinue ceftriaxone today. Continue doxycycline and Levofloxacin. Recs: Continue increased dose of Ceftriaxone, 2 gm daily, D7 of D7, last dose today Continue Doxycycline, D7of D10 Continue Levofloxacin 750mg PO every 24 hours, D5 of D10 Follow up ID clinic in 2 weeks` ID is signing off [facility] M: [id number] O:[phone] Subjective Date of service: 07/28/18 Interval history: Patient seen and examined. Stated that his testicular pain and swelling is improved. Discussion regarding follow up with urologist after discharge, verbalized understanding. Objective - Exam Narrative Exam: Constitutional: Alert, cooperative. Testicular pain improving Head, Ears, Nose: Normocephalic, atraumatic. External ears, nose normal Eyes: Conjunctivae/corneas clear. No icterus. No ptosis. Neck: Supple, no meningeal signs Oral: dentition fair, no thrush Cardiovascular: S1, S2 normal. Respiratory: Good air entry, clear to auscultation bilaterally GI: Soft, non-tender; bowel sounds normal. No peritoneal signs : left testicle with significant swelling, firm and tender- improving. No penile lesions Musculoskeletal: No pedal edema, no cyanosis. Skin: No rash or abscess Hem/Lymphatic: No palpable cervical or supraclavicular nodes. No lymphangitis Psych: Mood ok. Affect normal Neurological: Awake, alert, oriented. No gross abnormality - Constitutional Vitals: Vital Signs Temp Pulse Resp BP Pulse Ox 99.5 F 68 18 124/62 98 07/28/18 04:20 07/28/18 04:20 07/28/18 09:00 07/28/18 04:20 07/28/18 04:20 Temperature -Last 24 Hours Temperature 99.5 F Temperature 98.9 F Temperature 99.6 F Temperature 99.8 F - Labs CBC & Chem 7: 07/27/18 10:13 07/24/18 06:50 Labs: Abnormal lab results 07/27/18 07/28/18 Range/Units 10:13 07:00 Hct 34.8 L (35.5-45.6) % MCHC 35 H (32-34) % RDW 13.1 L (13.2-15.2) % [place] % (Auto) 10.6 H (0.0-7.3) % Vancomycin Trough 30.7 H (5.0-20.0) ug/mL
[2018-07-28] MEDS ORDERED: ROCEPHIN IV SCH (10:00)
[2018-07-28] MEDS ORDERED: NACL 0.9% IV SCH (10:00)
[2018-07-28] MEDS: LOVENOX SUB-Q SCH (10:31)
[2018-07-28] MEDS: LEVAQUIN PO SCH (10:31)
[2018-07-28] MEDS: DOXYCYCLINE HYCLATE 100 MG in NACL 0.9% 250ML 250 ML IV SCH (10:32)
[2018-07-28] MEDS: NON-FORMULARY PO SCH ×3 (10:33→10:35)
[2018-07-28] MEDS: SODIUM CHLORIDE FLUSH SYRINGE 10 ML IV SCH (10:38)
--- NOTE | 2018-07-28 12:21 | Discharge Summary ---
Providers - Providers Date of Admission: 07/20/18 03:23 Attending physician: JENIFFER VEGA MD 07/21/18 14:54 Consult to Physician [CONS] Routine Comment: Consulting Provider: VU MEDINA Physician Instructions: Reason For Exam: Lt.Epididymitis/Fever [facility] Condition: Stable Hospital course: 28-year-old -[place] male patient with significant history of HIV low CD4 count was admitted with fever and chills and testicular pain, workup consistent with left epididymitis. -He was co-managed by infectious disease and Urology. He received IV antibiotics, scrotal elevation was recommended. The patient is being discharged on a course of oral antibiotics which has been advised that he must complete. Diagnoses Left epididymitis Sepsis HIV/AIDS Disposition: TO HOME OR SELFCARE Time spent for discharge: 33 mins Core Measure Documentation - Palliative Care Palliative Care/ Comfort Measures: Not Applicable - Core Measures Any of the following diagnoses?: none Exam - Constitutional Vitals: Temp Pulse Resp BP Pulse Ox 98.1 F 78 16 128/78 98 07/28/18 11:39 07/28/18 11:39 07/28/18 11:39 07/28/18 11:39 07/28/18 11:39 General appearance: Present: no acute distress, well-nourished - EENT Eyes: Present: PERRL ENT: hearing intact, clear oral mucosa - Neck Neck: Present: supple, normal ROM - Respiratory Respiratory effort: normal Respiratory: bilateral: CTA - Cardiovascular Heart Sounds: Present: S1 & S2. Absent: rub, click - Extremities Extremities: pulses symmetrical, No edema Peripheral Pulses: within normal limits - Abdominal General gastrointestinal: Present: soft, non-tender, non-distended, normal bowel sounds Male genitourinary: Present: normal - Integumentary Integumentary: Present: clear, warm, dry - Musculoskeletal Musculoskeletal: gait normal, strength equal bilaterally - Psychiatric Psychiatric: appropriate mood/affect, intact judgment & insight - Neurologic Neurologic: CNII-XII intact, moves all extremities Plan Follow up with: PRIMARY CAREMD [Referring] - 3-5 Days Forms: STI Treatment and Prevention Prescriptions: RX: Doxycycline [Vibramycin CAP] 100 mg PO Q12HR #6 capsule RX: levoFLOXacin [Levaquin TAB] 750 mg PO Q24HR #5 tablet oxyCODONE /ACETAMINOPHEN [Percocet 5/325] 1 tab PO Q6HR PRN #20 tablet PRN Reason: Pain
[2018-07-28 16:42] VITALS: BP 132/88
== END 2018-07-28 17:56 | disposition home or self-care (01) | DRG 976 ==
LOC: ED 19:36 → 3A 07-20 03:23
PROVIDERS: ADMIT Internal Medicine; ATTEND Internal Medicine
DX: A41.9 Sepsis, unspecified organism (principal); B20 Human immunodeficiency virus [HIV] disease; N43.3 Hydrocele, unspecified; N45.1 Epididymitis; Z82.49 Family history of ischemic heart disease and other diseases of the circulatory system
CPT/HCPCS: 36415; 80048; 80202; 81001; 82140; 82962; 85007; 85025; 86592; 86593; 86780; 87040; 87086; 87591; 93975; G0378; J0696; J1170; J1650; J1956; J2270; J2405; J3246; J3370; J7030; J7040; J7050